=== PATIENT | female | born 1990 | race Caucasian/White ===

== ENCOUNTER 2020-05-14 21:56 | Emergency (ER) | payer OTHER, SELFPAY ==
[2020-05-14 21:58] VITALS: BP 133/81; PULSE 88; RESP 15; TEMP 35.7; O2SAT 99; BMI 30.7
--- NOTE | 2020-05-14 22:04 | PC.NURSE ---
PATIENT AMBULATING STEADILY NO DEFICITS NOTED. NO CHANGES TO SPEECH OR VISION. ALERT AND ORIENTED, IN TRIAGE. ABLE TO COMPLETE A NEURO ASSESSMENT WITH ISSUES.
--- NOTE | 2020-05-14 22:44 | ECG_ITS ---
Test Reason : BASELINE Blood Pressure : / mmHG Vent. Rate : 068 BPM Atrial Rate : 068 BPM P-R Int : 132 ms QRS Dur : 086 ms QT Int : 400 ms P-R-T Axes : 043 054 040 degrees QTc Int : 425 ms Normal sinus rhythm Normal ECG No previous ECGs available Referred By: Faith Enriquez Electronically Signed By:LINUS ANDRADE MD
[2020-05-14 23:01] LABS: Basophils Percent Auto 0.2 % (0-2); Eosinophils Percent Auto 0.2 % (0-4); Hematocrit 41.7 % (37-47); Imm Gran Abs Auto 0.05 X10*3/uL (0.00-0.03); Imm Gran Pct Auto 0.4 % (0.0-0.4); Lymphocytes Absolute Auto 2.6 X10*3/uL (1.2-4.9); MANUAL DIFF FLAG NO; Mean Corpuscular HGB Conc 33.6 g/dl (31.0-35.0); Mean Corpuscular Hemoglobin 30.6 pg (27.0-33.0); Mean Platelet Volume 9.3 fL (9.4-12.3); Monocytes Absolute Auto 0.7 X10*3/uL (0.1-1.2); Monocytes Percent Auto 6.1 % (2-11); Neutrophils Absolute Auto 8.8 X10*3/uL (2.0-8.3); Neutrophils Percent Auto 72.1 % (45-73); Platelet Count 317 X10*3/uL (160-400); Red Blood Count 4.58 X10*6/uL (4.20-5.50); Red Cell Distribution Width 12.1 % (11.0-16.0); White Blood Count 12.2 X10*3/uL (4.8-10.8)
[2020-05-14 23:13] LABS: Glucose Urine UA NEG (NEG); Leukocyte Esterase Urine TRACE (NEG); Nitrite Urine NEG (NEG); Specific Gravity - Urine 1.015 (1.005-1.025); Urine Blood TRACE (NEG); Urine Ketones NEG (NEG); Urine Protein NEG (NEG-TRACE)
[2020-05-14 23:15] LABS: Appearance Urine CLEAR; Color Urine YELLOW; UPreg QC Valid YES; Urine Pregnancy NEGATIVE (NEGATIVE)
[2020-05-14 23:22] LABS: Ethanol < 10 mg/dL
[2020-05-14 23:24] LABS: Bacteria Urine 1+ /LPF; Mucus Urine 1+ /LPF; RBC Urine 0-2 /HPF (0); Squamous Epithelial Cell Urine 2+ /LPF
[2020-05-14 23:25] LABS: Alanine Aminotransferase 13 U/L (0-31); Albumin Level 4.3 g/dL (3.5-5.0); Alkaline Phosphatase 59 U/L (39-117); Anion Gap 14 (12-20); Aspartate Amino Transferase 15 U/L (5-31); Bilirubin Total 0.3 mg/dL (0.0-1.0); Blood Urea Nitrogen 10 mg/dL (9-16); Carbon Dioxide 24 mmol/L (22-29); Chloride 104 mmol/L (96-108); Creatinine Clr Calc Pharmacy 120.8; Estimated Glomerular Filt Rate > 60; Glucose Random 92 mg/dL (60-115); Potassium 4.3 mmol/l (3.3-5.1); Sodium 138 mmol/L (135-145); Total Protein 7.2 g/dL (6.5-8.0)
[2020-05-14 23:27] LABS: Amphetamine Screen Urine Not Detected (Not Detect); Barbiturates, Urine Not Detected (Not Detect); Benzodiazepines Screen Urine Not Detected (Not Detect); Cannabinoid Screen Urine Not Detected (Not Detect); Cocaine Screen Urine Not Detected (Not Detect); Opiate Screen Urine Not Detected (Not Detect); Phencyclidine Screen Urine Not Detected (Not Detect)
[2020-05-14 23:46] LABS: TSH reflex Free T4 2.26 mIU/mL (0.32-4.0)
[2020-05-15] VITALS: BP 141/82; PULSE 83; RESP 15; TEMP 36.6; O2SAT 100
--- NOTE | 2020-05-15 00:08 | ED.GENADULT ---
HPI - General Adult General Chief complaint: General Medical Stated complaint: High Blood Pressure Time Seen by Provider: 05/14/20 22:43 Source: patient Mode of arrival: ambulatory Limitations: no limitations History of Present Illness HPI narrative: Is a 29-year-old female who presents for onset of bilateral peripheral vision decrease while at work on the computer and associated with some mild nausea but denies any associated dizziness, diaphoresis, shortness of breath, but states that this lasted approximately 45 minutes and did not affect her ability to perform her job and after resolution states that she began having a headache. She states that on the drive home she experienced some tingling and numbness in the tips of all 5 fingers that lasted approximately 10-15 minutes and that she felt shaky. She denies any recognizable stressor swallow work. When she got home due to the persistent headache she took her blood pressure and felt like it was elevated at 149/94. Her history is significant for having taken to control pills this morning because she had missed her dose yesterday. She does endorse that she is a smoker but does not have any personal or family history leg or lung clots, denies any recent travel, denies any recent calf swelling /pain unilaterally. In addition, she denies any associated shortness of breath. She states she has had some anxiety but that this is not something that she currently takes medication for. Related Data Home Medications Medication Instructions Recorded Confirmed L norgest/e.estradiol-e.estrad 1 tab PO DAILY 05/15/20 05/15/20 norgestimate-ethinyl estradiol 1 tab PO DAILY 05/15/20 05/15/20 [Tri-Previfem (28)] Previous Rx's Medication Instructions Recorded sulfamethoxazole-trimethoprim 1 tab PO Q12H 3 Days #6 tab 05/15/20 [Bactrim DS] Allergies Allergy/AdvReac Type Severity Reaction Status Date / Time No Known Allergies Allergy Verified 05/14/20 22:02 Review of Systems Review of Systems: Pertinent positives and negatives as stated in HPI 10 point review systems is otherwise negative. [facility] Past Medical History Source: nursing notes reviewed Medical History No active medical problems Social History Social History Smoking Status: Current every day smoker Use of substances other than those prescribed or required for medical reasons: No Advance Directives: No Advance Directives Information Provided: No Physical Exam Vital Signs: Vital Signs: Last Vital Signs Temp 97.8 F 05/15/20 00:00 Pulse 83 05/15/20 00:00 Resp 15 05/15/20 00:00 BP 141/82 H 05/15/20 00:00 Pulse Ox 100 05/15/20 00:00 Body Mass Index 30.7 VITAL SIGNS: Reviewed. GENERAL: Well developed, well nourished, in no acute distress. HEAD: Normocephalic/atraumatic, EYES: PERRLA, EOMI intact without pain, no nystagmus/pallor/icterus noted EARS: Ext canals without abnormality, TMs non-bulging and non-erythematous NOSE: Nares patent bilateral OROPHARYNX: no oral lesions noted, posterior pharynx clear and non-erythematous without noted tonsillar enlargement/erythema/exudates NECK: Supple, no adenopathy LUNGS: Normal breath sounds. No adventitious sounds or accessory muscle use. SpO2<100> CARDIOVASCULAR: Regular rate and rhythm without noted murmurs, no JVD or lower extremity edema. ABDOMEN: Soft, non-tender, non-distended with bowel sounds. No rigidity. No guarding. No palpable masses or hernias noted MUSCULOSKELETAL: No tenderness, deformities, or effusions noted on gross inspection. EXTREMITIES: No cyanosis, clubbing or edema. SKIN: Inspection of the skin reveals no rashes, ulcerations, jaundice, pallor, or petechiae. NEUROLOGIC: Alert and oriented x 4. Strength and sensation to light touch were grossly intact x 4 , cranial nerves 2-12 are grossly intact, cerebellar testing is without deficit. Course Course Course Narrative: This is a 29-year-old female with history and clinical presentation suggestive of possible anxiety reaction, doubt neurological etiology given the bilateral peripheral abnormality without evidence or history pituitary abnormalities and given the fact the patient has taken 2 of her control which could largely affect both headache as well as blood pressure. All symptoms have completely resolved at this time with the exception of the headache which will be treated with Tylenol as patient did not take anything for this. On review of all investigations there is a noted mild leukocytosis without left shift most consistent with likely stress response, there is no evidence of electrolyte or thyroid dysfunction, But there is trace leukocyte esterase as well as wbc's present in the urine which is suggestive of a UTI and patient will receive initial antibiotics here in the emergency department and be discharged with a prescription. All results and findings were discussed with her at bedside. Medical Decision Making Lab Data Result diagrams: 05/14/20 22:54 05/14/20 22:54 Labs: Lab Results 05/14/20 05/14/20 05/14/20 Range/Units 22:54 22:54 22:54 WBC 12.2 H (4.8-10.8) X10*3/uL RBC 4.58 (4.20-5.50) X10*6/uL Hgb 14.0 (12.0-16.0) g/dl Hct 41.7 (37-47) % MCV 91.0 (80-98) fL MCH 30.6 (27.0-33.0) pg MCHC 33.6 (31.0-35.0) g/dl RDW 12.1 (11.0-16.0) % Plt Count 317 (160-400) X10*3/uL MPV 9.3 L (9.4-12.3) fL Immature Gran % (Auto) 0.4 (0.0-0.4) % Neut % (Auto) 72.1 (45-73) % Lymph % (Auto) 21.0 (20-40) % [place] % (Auto) 6.1 (2-11) % Eos % (Auto) 0.2 (0-4) % Baso % (Auto) 0.2 (0-2) % Lymph # (Auto) 2.6 (1.2-4.9) X10*3/uL [place] # (Auto) 0.7 (0.1-1.2) X10*3/uL Eos # (Auto) 0.0 (0.0-0.4) X10*3/uL Baso # (Auto) 0.0 (0.0-0.2) X10*3/uL Abs Immat Gran (auto) 0.05 H (0.00-0.03) X10*3/uL Absolute Neuts (auto) 8.8 H (2.0-8.3) X10*3/uL Absolute Nucleated RBC 0.000 (0.0-0.012) X10*3/uL Nucleated RBC % (auto) 0.0 (0.0-0.2) /100WBC Sodium 138 (135-145) mmol/L Potassium 4.3 (3.3-5.1) mmol/l Chloride 104 (96-108) mmol/L Carbon Dioxide 24 (22-29) mmol/L Anion Gap 14 (12-20) BUN 10 (9-16) mg/dL Creatinine 0.76 (0.5-1.4) mg/dL Estim Creat Clear Calc 120.8 Estimated GFR > 60 Random Glucose 92 (60-115) mg/dL Calcium 9.0 (8.4-10.2) mg/dL Total Bilirubin 0.3 (0.0-1.0) mg/dL AST 15 (5-31) U/L ALT 13 (0-31) U/L Alkaline Phosphatase 59 (39-117) U/L Total Protein 7.2 (6.5-8.0) g/dL Albumin 4.3 (3.5-5.0) g/dL TSH (0.32-4.0) mIU/mL Urine Color Urine Appearance Urine pH (5.0-8.0) Ur Specific [place] (1.005-1.025) Urine Protein (NEG-TRACE) MG/DL Urine Glucose (UA) (NEG) MG/DL Urine Ketones (NEG) MG/DL Urine Blood (NEG) Urine Nitrite (NEG) Ur Leukocyte Esterase (NEG) Urine RBC (0) /HPF Urine WBC (0-4) /HPF Ur Squamous Epith Cells /LPF Urine Bacteria /LPF Urine Mucus /LPF Urine Test (NEGATIVE) Urine Opiates Screen (Not Detect) Ur Barbiturates Screen (Not Detect) Ur Phencyclidine Scrn (Not Detect) Ur Amphetamines Screen (Not Detect) U Benzodiazepines Scrn (Not Detect) Urine Cocaine Screen (Not Detect) U Marijuana (THC) Screen (Not Detect) Ethyl Alcohol < 10 mg/dL 05/14/20 05/14/20 05/14/20 Range/Units 22:54 23:06 23:06 WBC (4.8-10.8) X10*3/uL RBC (4.20-5.50) X10*6/uL Hgb (12.0-16.0) g/dl Hct (37-47) % MCV (80-98) fL MCH (27.0-33.0) pg MCHC (31.0-35.0) g/dl RDW (11.0-16.0) % Plt Count (160-400) X10*3/uL MPV (9.4-12.3) fL Immature Gran % (Auto) (0.0-0.4) % Neut % (Auto) (45-73) % Lymph % (Auto) (20-40) % [place] % (Auto) (2-11) % Eos % (Auto) (0-4) % Baso % (Auto) (0-2) % Lymph # (Auto) (1.2-4.9) X10*3/uL [place] # (Auto) (0.1-1.2) X10*3/uL Eos # (Auto) (0.0-0.4) X10*3/uL Baso # (Auto) (0.0-0.2) X10*3/uL Abs Immat Gran (auto) (0.00-0.03) X10*3/uL Absolute Neuts (auto) (2.0-8.3) X10*3/uL Absolute Nucleated RBC (0.0-0.012) X10*3/uL Nucleated RBC % (auto) (0.0-0.2) /100WBC Sodium (135-145) mmol/L Potassium (3.3-5.1) mmol/l Chloride (96-108) mmol/L Carbon Dioxide (22-29) mmol/L Anion Gap (12-20) BUN (9-16) mg/dL Creatinine (0.5-1.4) mg/dL Estim Creat Clear Calc Estimated GFR Random Glucose (60-115) mg/dL Calcium (8.4-10.2) mg/dL Total Bilirubin (0.0-1.0) mg/dL AST (5-31) U/L ALT (0-31) U/L Alkaline Phosphatase (39-117) U/L Total Protein (6.5-8.0) g/dL Albumin (3.5-5.0) g/dL TSH 2.26 (0.32-4.0) mIU/mL Urine Color YELLOW Urine Appearance CLEAR Urine pH 6.0 (5.0-8.0) Ur Specific [place] 1.015 (1.005-1.025) Urine Protein NEG (NEG-TRACE) MG/DL Urine Glucose (UA) NEG (NEG) MG/DL Urine Ketones NEG (NEG) MG/DL Urine Blood TRACE (NEG) Urine Nitrite NEG (NEG) Ur Leukocyte Esterase TRACE H (NEG) Urine RBC 0-2 (0) /HPF Urine WBC 5-9 H (0-4) /HPF Ur Squamous Epith Cells 2+ /LPF Urine Bacteria 1+ /LPF Urine Mucus 1+ /LPF Urine Test NEGATIVE (NEGATIVE) Urine Opiates Screen Not Detected (Not Detect) Ur Barbiturates Screen Not Detected (Not Detect) Ur Phencyclidine Scrn Not Detected (Not Detect) Ur Amphetamines Screen Not Detected (Not Detect) U Benzodiazepines Scrn Not Detected (Not Detect) Urine Cocaine Screen Not Detected (Not Detect) U Marijuana (THC) Screen Not Detected (Not Detect) Ethyl Alcohol mg/dL ECG Data Attestation: I personally reviewed and interpreted this ECG as follows: Interpretation: Normal sinus rhythm, HR - 68, no acute evidence of ischemia, MT/QRS/QTC are within normal limits. Discharge Plan Discharge Clinical Impression: UTI (urinary tract infection), Anxiety Patient Disposition: Home, Self-Care Instructions: Urinary Tract Infection in Women (ED) Additional Instructions: Resume all prescribed home medications. The patient and/or family acknowledge understanding of results (as applicable), diagnosis, treatment plan, need for follow up, and symptoms that should prompt a return to the emergency room. Prescriptions: New sulfamethoxazole-trimethoprim [Bactrim DS] 800-160 mg tablet 1 tab PO Q12H 3 Days Qty: 6 RF: 0 No Action norgestimate-ethinyl estradiol [Tri-Previfem (28)] 0.18/0.215/0.25 mg-35 mcg (28) tablet 1 tab PO DAILY RF: 0 L norgest/e.estradiol-e.estrad 0.15 mg-30 mcg (84)/10 mcg (7) tablets,dose pack,3 month 1 tab PO DAILY RF: 0 Referrals: Physician,Unknown [Primary Care Provider] - 2 days
[2020-05-15] MEDS: Acetaminophen 325 MG TABLET 975 MG PO (00:15)
--- NOTE | 2020-05-15 00:17 | PC.NURSE ---
PATIENT MEDICATED PER EMAR NOTED
== END 2020-05-15 01:50 | disposition home or self-care (01) ==
PROVIDERS: Emergency Provider Student in an Organized Health Care Education/Training Program
DX: N39.0 Urinary tract infection, site not specified (principal); F41.9 Anxiety disorder, unspecified; F17.200 Nicotine dependence, unspecified, uncomplicated; Z71.6 Tobacco abuse counseling; Z79.899 Other long term (current) drug therapy; Z91.14 Patient's other noncompliance with medication regimen
CPT/HCPCS: 36415; 80053; 80307; 80320; 81001; 81025; 84443; 85025; 87086; 93005; 99284

== ENCOUNTER 2024-09-22 15:27 | Outpatient (AMB) | payer OTHER, SELFPAY ==
--- NOTE | 2024-09-22 15:39 | A.OFFPC_ITS ---
Vital Signs 09/22/24 15:44 Height 5 ft 5.25 in Weight 242 lb BMI 40.0 BP 122/72 Blood Pressure Location Rt brachial Pulse 77 Pulse Source Pulse Oximeter Temp 97.2 F Pulse Oximetry (%) 99 Intake Visit Reasons: follow up Intake Note: no issues Allergies No Known Allergies Allergy (Verified 09/22/24 15:54) Medication List - Last Reconciled 09/22/24 by Kailey Palomo PA-C No Known Home Meds COUNTS INCLUDE 234 BEDS AT THE [facility] Medical History (Updated 09/22/24 @ 17:11 by Kailey Palomo PA-C) Fatty liver Varicose veins of both lower extremities Obesity, morbid, BMI 40.0-49.9 Establishing care with new doctor, encounter for Cervical cancer screening No active medical problems Surgical History H/O tubal ligation Questionnaire Thrive Questionnaire Date Thrive assessed: 02/18/24 Physical exam (Primary Care) Vital Signs: Last Vital Signs Temp 97.2 F 09/22/24 15:44 Pulse 77 09/22/24 15:44 BP 122/72 09/22/24 15:44 Pulse Ox 99 09/22/24 15:44 Care Plan Goal for BP management: <130/80 BMI result Body Mass Index 40.0 BMI Assessment/Plan discussion: High BMI High, discussed plan: lifestyle, weight reduction, dietary, physical activity and alcohol moderation Thrive Assessment: Date of Thrive Assessment Date Thrive assessed 02/18/24 09/22/24 15:46 Coding Level of Care Code New Pt Level 4 (12809) Complex EM visit Add On G2211 Diagnoses Establishing care with new doctor, encounter for Z76.89 Cervical cancer screening Z12.4 Obesity, morbid, BMI 40.0-49.9 E66.01 Varicose veins of both lower extremities I83.93 Fatty liver K76.0 Assessment & Plan Assessment & Plan (1) Establishing care with new doctor, encounter for: Code(s): Z76.89 - Persons encountering health services in other specified circumstances Category: Medical (2) Cervical cancer screening: Code(s): Z12.4 - Encounter for screening for malignant neoplasm of cervix Category: Medical Plan: will refer to [facility]. Last cervical cancer screening was in 2022. Will continue to monitor. (3) Obesity, morbid, BMI 40.0-49.9: Code(s): E66.01 - Morbid (severe) obesity due to excess calories Category: Medical Plan: Initiate semaglutide (Wegovy/Zepbound) trial pending insurance coverage for weight management. Evaluate weight plateau possibilities and consider a referral for bariatric evaluation if ineffectual. Require fasting lipid profile and associated bloodwork for comprehensive metabolic assessment. Condition is chronic and stable continue to monitor. (4) Varicose veins of both lower extremities: Code(s): I83.93 - Asymptomatic varicose veins of bilateral lower extremities Category: Medical Plan: Provide a referral for vascular assessment with options for cosmetic or symptomatic relief such as sclerotherapy for chronic venous insufficiency. Educate on familial risk awareness and symptom monitoring. Although patient wanted to hold off on this she would like to go in the future if it gets worse. Will continue to monitor. (5) Fatty liver: Code(s): K76.0 - Fatty (change of) liver, not elsewhere classified Category: Medical Plan: Monitor liver enzymes routinely, advise diet, and weight loss strategies to preclude hepatic steatohepatitis or worsen steatosis. Condition is chronic and stable continue to monitor. Plan Plan Patient was informed and verbally consented to the use of an ambient scribe for clinic note documentation during this visit. 1. Status Post Tubal Ligation Noted procedural history without required intervention at present. 2. Obesity Initiate semaglutide (Wegovy/Zepbound) trial pending insurance coverage for weight management. Evaluate weight plateau possibilities and consider a referral for bariatric evaluation if ineffectual. Require fasting lipid profile and associated bloodwork for comprehensive metabolic assessment. 3. Family history of ischemic heart disease and other diseases of the circulatory system Educate on preventive maneuvers acknowledging genetic predisposition and encourage routine cardiovascular screenings. 4. Venous Insufficiency With Varicose Veins Provide a referral for vascular assessment with options for cosmetic or symptomatic relief such as sclerotherapy for chronic venous insufficiency. Educate on familial risk awareness and symptom monitoring. 5. Possible Hepatic Steatosis Monitor liver enzymes routinely, advise diet, and weight loss strategies to preclude hepatic steatohepatitis or worsen steatosis. Discussion Notes I addressed the patient's obesity concerns by discussing pharmacologic interventions, namely Semaglutide (Wegovy/Zepbound), which might assist in achieving her weight management goals considering her metabolic profile. We reviewed the insurance processes and alternative routes like referral to a bariatric surgeon. I offered vascular specialist referral due to familial varicose vein history and her symptoms. Monitoring for hepatic steatosis was recommended due to previously noted enzyme elevation, coupled with a discussion of lifestyle ameliorations. Her family history of myocardial infarction flagged the importance of preventative cardiovascular assessments. We maintained an open dialogue concerning all possible options, including benefits and risks, ensuring informed shared decision-making. Orders: Orders Comprehensive [place]. Panel Fast Today Z00.00 - Encounter for general adult medical examination without abnormal findings C Reactive Protein Today Z00.00 - Encounter for general adult medical examination without abnormal findings Magnesium Today Z00.00 - Encounter for general adult medical examination without abnormal findings Liver Panel Today Z00.00 - Encounter for general adult medical examination without abnormal findings Lipid Panel Today Z00.00 - Encounter for general adult medical examination without abnormal findings Vitamin D 25-OH Total Today Z00.00 - Encounter for general adult medical examination without abnormal findings Complete Blood Count Auto Diff Today Z00.00 - Encounter for general adult medical examination without abnormal findings Erythrocyte Sedimentation Rate Today Z00.00 - Encounter for general adult medical examination without abnormal findings Hemoglobin A1c Today Z00.00 - Encounter for general adult medical examination without abnormal findings TSH reflex Free T4 Today Z00.00 - Encounter for general adult medical examination without abnormal findings Vitamin B12 and Folate Today Z00.00 - Encounter for general adult medical examination without abnormal findings Prolactin Today Z00.00 - Encounter for general adult medical examination without abnormal findings Testosterone, Total Today Z00.00 - Encounter for general adult medical examination without abnormal findings Estrogen Today Z00.00 - Encounter for general adult medical examination without abnormal findings Progesterone Today Z00.00 - Encounter for general adult medical examination without abnormal findings Referrals [facility] Referral Z12.4 - Encounter for screening for malignant neoplasm of cervix, Z76.89 - Persons encountering health services in other specified circumstances Medications: New tirzepatide (weight loss) (Zepbound) for 4 weeks 2.5 mg (0.5 mL) subcut QWEEK 2 mL 0RF E66.01 - Morbid (severe) obesity due to excess calories Discontinued sulfamethoxazole-trimethoprim 800-160 mg (Bactrim DS) Discontinued Reason: Patient Completed Course 1 tab PO Q12H 3 days 6 tabs 0RF Patient Instructions: Patient Instructions - Undergo fasting blood work as soon as possible. - Visit a referral vascular specialist who will contact you to arrange an appointment. - Monitor weight and adhere to a healthy diet to assist in achieving desired weight goals. - Await referral and potentially begin injectable semaglutide treatment as per prescription if approved by insurance. - Attend a follow-up in three months to review progress and revisit treatment outcomes. - Monitor for potential symptoms escalating or emerging requiring immediate attention, such as new leg pain, gastrointestinal symptoms, or changes in liver health. Scribe Plan - Not visible on output: History of Present Illness The patient is a 34-year-old female presenting for a wellness visit. She reports difficulty losing weight, especially after a tubal ligation in December 2022, and is seeking potential interventions for weight management. Despite efforts, her weight remains steadily above 240 pounds. Her family medical history is significant for a maternal history of mild myocardial infarction in the 50s and varicose veins, from which she might have inherited her venous insufficiency, m arked by a persistent bruise and discoloration on her leg. Additionally, she has previous hepatic enzyme elevations indicative of potential hepatic steatosis but denies abdominal pain or gastrointestinal symptoms. No other immediate medical concerns are reported, and the patient expresses interest in referrals for further evaluation of these conditions. Social History - Employment: Works at a [employer] in [place] for 15 years since high school - Housing: Lives in [facility] - Family status: Mother of two sons, aged 16 and 10 - Education: Attended elementary school with the clinician - Functional status: Active with work, requires moderate activity - Weight management: Attempted weight loss previously, plateauing after tubal ligation Review of Systems - Cardiovascular: Denies chest pain - Gastrointestinal: Denies abdominal pain, black or bloody stools - Musculoskeletal: Denies recent injuries; notes persistent bruise/discoloration on leg due to past injury - Endocrine: Denies thyroid dysfunction - General: Reports difficulty losing weight Physical Exam Appearance: Alert. Oriented X3. No acute distress. Head: Normal external exam. Normocephalic. Atraumatic. Eyes: Pupils are equal, round, and reactive to light. Extraocular movements intact. Conjunctiva and sclera normal. Eyelids normal. Ears: External auditory canal normal. Tympanic membranes normal. Throat: Pharynx normal. Uvula midline. Moist mucous membranes. Neck: Normal inspection. Neck supple. Full range of motion. No adenopathy. Thyroid Normal. No meningeal signs. No neck mass noted. Cardiovascular: Normal heart rate and rhythm. Heart sound normal. No murmurs noted. Pulses normal throughout. Respiratory: No respiratory distress. Painless inspiration. Breath sounds normal. No wheezes/rales/rhonchi noted. Chest nontender. No accessory muscle usage noted or decreased air movement noted. Abdomen: Soft and nontender. Bowel sounds normal in all 4 quadrants. No distention noted. No organomegaly noted. No visible injury noted. Back: No costovertebral angle tenderness. Full range of motion noted. Skin: Skin warm and dry. Normal skin color. Normal skin turgor. No rashes/lesions/lacerations noted. Bruise noted on the bottom of the leg, present for a long time, possibly related to varicose veins. Extremities: No lower extremity edema. Extremities exhibit normal range of motion. Extremities nontender. Occasional leg swelling noted after a long day. Neuro: Oriented X 3. No motor deficit. No sensory deficit. Reflexes normal.
[2024-09-22 15:44] VITALS: BP 122/72; PULSE 77; TEMP 36.2; O2SAT 99; BMI 40.0
--- OUTSIDE RECORDS SUMMARY | 2024-09-22 19:17 | XMS_ITS | Patient Health Record ---
Author Organization [facility] Address [address] [place] [address] [phone] Support Name Relationship Address Phone ELOY TANA Guarantor Unknown Unavailable REASON FOR REFERRAL No Information MEDICATIONS Medication SIG (Take, Route, Frequency, Duration) Notes Start Date End Date Status Cholestyramine 4 GM tAKE 1 PACKET MIX WITH WATER OR JUICE AND CONSUME ORALLY TWICE DAILY BEFORE MEALS Oral cholestyramine (with sugar) 4 gram powder for susp in a packet 03/23/2022 Active magnesium glycinate 100 mg tablet TAKE 4 TABS ORALLY ONCE DAILY BEFORE BED magnesium glycinate 100 mg tablet *Reorder from [email or web address] for eRx and Interaction Alerts* 03/23/2022 Active INCASSIA 0.35 MG TABLET INCASSIA 0.35 MG TABLET *Reorder from [email or web address] for eRx and Interaction Alerts* 02/25/2022 Active Niacin ER 500 MG tAKE 1 CAP ORALLY ONCE DAILY Oral niacin ER 500 mg capsule,extended release 03/23/2022 Active Omeprazole 40 MG Take 1 cap orally once daily at bedtime Oral omeprazole 40 mg capsule,delayed release 03/16/2022 Active PLAN OF TREATMENT No Information Insurance Providers Payer Name Payer Address Payer Phone Subscriber Number Group Number Insured Name Patient Relationship to Insured Coverage Start Date Coverage End Date [employer] [address] [place] [phone] [id number] TANA LYONS Self - patient is the insured
--- OUTSIDE RECORDS SUMMARY | 2024-09-22 19:17 | XMS_ITS | Clinical Summary ---
Author Organization [employer] Address [address] [facility] [address] [place] [address] Care Team Providers Care Regional Marketing Director Name Role Phone Unavailable Primary Care Provider Unavailabl e Social History Tobacco Use Types Packs/Day Years Used Date Smoking Tobacco: Never Assessed Comments Unknown Sex and Gender Information Value Date Recorded Sex Assigned at Female 02/18/2024 10:48 AM EDT Legal Sex Female 10:47 AM EDT Gender Identity Female 02/18/2024 10:48 AM EDT Sexual Orientation Don't know 02/18/2024 10 :48 AM EDT Plan of Treatment Health Maintenance Due Date Last Done Comments Depression Screening 1990 HIV Screening 1990 SDOH Screening 1990 Alcohol/Substance Use Screening 2002 Tobacco Screening 2002 Family Planning (PISQ) 2005 Hepatitis C Screening 2008 DTaP/Tdap/Td Vaccines (1 - Tdap) 2009 Hepatitis B Vaccines (1 of 3 - 19+ 3-dose series) 2009 Pap Smear 2011 Cervical Cancer Screening 2020 HPV/Cotest 2020 COVID-19 Vaccine ( - 2023-2 5 season) 2024 Influenza Vaccine (#1) 2024 Zoster Vaccines (1 of 2) 2040 RSV Patients and Pa tients Aged 60 years or older (1 - 1-dose 75+ series) 2065 HIB Vaccines Aged Out No longer eligi ble based on patient's age to complete this topic HPV Vaccines Aged Out No longer eligi ble based on patient's age to complete this topic Hepatitis A Vaccines Aged Out No long er eligible based on patient's age to complete this topic IPV Vaccines Aged Out No longer eligi ble based on patient's age to complete this topic Meningococcal Vaccine Aged Out No rosa maria izabel eligible based on patient's age to complete this topic Pneumococcal Vaccine: Pediat rics (0 to 5 Years) and At-Risk Patients (6 to 49) Years) Aged Out No longer eligible b ased on patient's age to complete this topic RSV under 20 months Aged Out No longe r eligible based on patient's age to complete this topic Rotavirus Vaccines Aged Out No longer eligible based on patient's age to complete this topic Insurance CIG
--- OUTSIDE RECORDS SUMMARY | 2024-09-22 19:17 | XMS_ITS | Data Portability ---
Author Organization [facility] Address [address] [place] [address] Care Team Providers Care Time Piece Repairer Name Role Phone STEFANI ARREAGA Primary Care Provider [phone] Assessment No assessment recorded. Plan of Treatment Reminders Order Date Submit Date Provider Last Modified By Organization Details Last Modified Time Details Appointments None recorded. Lab urinalysis, dipstick 2022 023 [facility], [address] [place] [address], [phone], 3 18:01:37 test, urine 2022 023 [facility] [address] [place] [address], [address] [place] [address], [phone], 3 18:01:37 culture, urine 2022 023 JENERA [facility], [address] [place] [address], [place], [address], 3 06:07:37 Referral None recorded. Procedures None recorded. Surgeries None recorded. Imaging XR, elbow, 3 or more view 2022 023 [facility], [address] [place] [address], [address], 18:55:51 Medication Orders cephalexin 500 mg capsule 2022 023 [id number], [address] [place], [address], 18:06:04 Patient TargetsNo targets recorded. Patient Instructions Encounter Date Encounter Id Patient Instructions Last Modified By Organization Details Last Modified Time 07/11/2022 [id number] elbow sprain: ca re instructions [email or web address] Not available 07/11/2022 18:04:01 08/13/2022 [id number] We recommend you get a repeat urinalysis in 2 weeks to ensure that any abnormalities have resolved. If urine abnormalities persist, you will likely need further testing or treatment. We will contact you within 3 to 5 days with the results of your lab test. If you have not heard back from us within that time frame, please feel free to contact our office regarding your results. Go to the Emergency Department immediately if your symptoms worsen or if you develop new symptoms that concern you. Drink plenty of fluids You should follow-up with your PCP in 4-5 days, or at any time if your condition does not improve or worsens. Any acute change should prompt a visit to the nearest Emergency Department. [email or web address] Not available 08/13/2022 18:01:36 Reason for Referral None Reported. Results Created Date Observation Date Name Description Value Unit Range Abnormal Flag Note LastModifiedBy Organization Detail LastModifiedTime 08/13/1908/15/2022 URINE CULTU REJUANITA NE urine culture, routine FINAL REPORT Not Available [facility] ([facility]) [address] [place], [address], 08/15/2022 06:07:37 08/13/19 23 08/15/2022 URINE CULTU REJUANITA NE result 1 COMMEN T Mixed uroge nital myron 10,00 0-25, 000 colon y formi ng units per mL Not Available [facility] ([facility]) [address] [place], [address], 08/15/2022 06:07:37 08/13/19 23 08/13/2022 urina lysis , dipst ick Unknown Analyte Normal = light yellow Not Available [address] [address] [facility], [address], 08/13/2022 17:33:10 08/13/19 23 08/13/2022 urina lysis , dipst ick Unknown Analyte Yellow Not Available se [address], [place], [address], 08/13/2022 17:33:10 08/13/19 23 08/13/2022 urina lysis , dipst ick Unknown Analyte Normal = clear Not Available [facility]en [facility], [place], [address], 08/13/2022 17:33:10 08/13/19 23 08/13/2022 urina lysis , dipst ick Unknown Analyte Slight ly Cloudy Not Available jen oneil [address], [place], [address], 08/13/2022 17:33:10 08/13/19 23 08/13/2022 urina lysis , dipst ick Unknown Analyte Normal = negati ve Not Available jen oneil [address], [place], [address], 08/13/2022 17:33:10 08/13/19 23 08/13/2022 urina lysis , dipst ick Unknown Analyte Negati ve Not Available jen oneil [address], [place], [address], 08/13/2022 17:33:10 08/13/19 23 08/13/2022 urina lysis , dipst ick Unknown Analyte Normal = Negati ve Not Available jen oneil [address], [place], [address], 08/13/2022 17:33:10 08/13/19 23 08/13/2022 urina lysis , dipst ick Unknown Analyte Negati ve Not Available jen oneil [address], [place], [address], 08/13/2022 17:33:10 08/13/1908/13/2022 urina lysis , dipst ick Unknown Analyte Normal = Negati ve Not Available jen oneil [address], [place], [address], 08/13/2022 17:33:10 08/13/19 23 08/13/2022 urina lysis , dipst ick Unknown Analyte 15 mg/dL Not Available jen oneil [address], [place], [address], 08/13/2022 17:33:10 08/13/19 23 08/13/2022 urina lysis , dipst ick Unknown Analyte Normal = 1.010, 1.015, 1.020 Not Available jen oneil [address], [place], [address], 08/13/2022 17:33:10 08/13/19 23 08/13/2022 urina lysis , dipst ick Unknown Analyte 1.020 Not Available se [address], [place], [address], 08/13/2022 17:33:10 08/13/19 23 08/13/2022 urina lysis , dipst ick Unknown Analyte Normal = Negati ve Not Available jen oneil [address], [place], [address], 08/13/2022 17:33:10 08/13/19 23 08/13/2022 urina lysis , dipst ick Unknown Analyte Trace- intact Not Available jen oneil [address], [place], [address], 08/13/2022 17:33:10 02/13/08/13/2022 urina lysis , dipst ick Unknown Analyte Normal = 6.5, 7.0, 7.5, 8.0 Not Available jen oneil [address], [place], [address], 08/13/2022 17:33:10 08/13/19 23 08/13/2022 urina lysis , dipst ick Unknown Analyte 6.5 Not Available [address], [place], [address], 08/13/2022 17:33:10 08/13/19 23 08/13/2022 urina lysis , dipst ick Unknown Analyte Normal = Negati ve Not Available [facility] [address], [place], [address], 08/13/2022 17:33:10 08/13/19 23 08/13/2022 urina lysis , dipst ick Unknown Analyte Negati ve Not Available jen [address], [place], [address], 08/13/2022 17:33:10 08/13/19 23 08/13/2022 urina lysis , dipst ick Unknown Analyte Normal = 0.2, 1.0 Not Available jen oneil [address], [place], [address], 08/13/2022 17:33:10 08/13/19 23 08/13/2022 urina lysis , dipst ick Unknown Analyte 0.2 E.U./d L Not Available [facility] [address], [place], [address], 08/13/2022 17:33:10 08/13/19 23 08/13/2022 urina lysis , dipst ick Unknown Analyte Normal = Negati ve Not Available jen [address], [place], [address], 08/13/2022 17:33:10 08/13/19 23 08/13/2022 urina lysis , dipst ick Unknown Analyte Negati ve Not Available [address]99jen oneil [address], [place], [address], 08/13/2022 17:33:10 08/13/19 23 08/13/2022 urina lysis , dipst ick Unknown Analyte Normal = Negati ve Not Available [facility] [address], [place], [address], 08/13/2022 17:33:10 08/13/19 23 08/13/2022 urina lysis , dipst ick Unknown Analyte Trace Not Available [address] [place] [address], [place], [address], 08/13/2022 17:33:10 08/13/19 23 08/13/2022 pregn danelle test, urine Unknown Analyte Normal = Negati ve Not Available [facility] [address], [place], [address], 08/13/2022 17:33:11 08/13/19 23 08/13/2022 pregn danelle test, urine Unknown Analyte negati ve Not Available [address] [place] [address], [place], [address], 08/13/2022 17:33:11 07/11/19 23 07/11/2022 XR, elbow , 3 or more view No observ ation record ed. [email or web address] 1 [facility] [address] [facility] [place], [address], 07/12/2022 08:12:42 Result Notes None recorded. Problems No Known Problems Procedures Surgical History None recorded. Imaging Results Imaging Date Name Status LastModified by Organiz ation Details LastModified Time 07/11/2022 XR, elbow, 3 or more view completed [email or web address] [facility] [address] [facility] [place], [address], 07/12/2022 08:12:42 Procedure Notes None recorded. Medical Equipment None Reported. Allergies No known drug allergies Medications Name Sig Start Date Stop Date Status Note LastModified by Organization Details LastModified Time cephalexin 500 mg capsule Take 1 capsule every 8 hours by oral route with meals for 7 days. 023 active Not Available Not Available Not Avai lable Zyrtec active Not Available Not Availa ble Not Available Incassia 0.35 mg tablet Take 1 tablet every day by oral route. active Not Available Not Available No t Available Vitals Date Recorded Body weight Body mass index (BMI) Body height Oxygen saturation Oxygen saturation in Arterial blood by Pulse oximetry Pain severity - 0-10 verbal numeric rating [Score] - Reported Heart rate Respiratory rate Body temperature Systolic blood pressure Diastolic blood pressure Provider Name and Address Organization Details Last Updated DateTime 3 554801. 25 g 37.1 kg/m2 167.64 cm 100 % 100 % 8 90 /min 20 /min 98.4 [degF] 144 mm[Hg] 92 mm[Hg] Nohemy Pina PA - [facility] 3 17:26:53 Date Recorded Body height Body mass index (BMI) Body weight Oxygen saturation Oxygen saturation in Arterial blood by Pulse oximetry Pain severity - 0-10 verbal numeric rating [Score] - Reported Heart rate Respiratory rate Body temperature Systolic blood pressure Diastolic blood pressure Provider Name and Address Organization Details Last Updated DateTime 3 167.64 cm 37.1 kg/m2 807102. 25 g 100 % 100 % 3 118 /min 20 /min 97.7 [degF] 137 mm[Hg] 85 mm[Hg] Nohemy Pina PA - [facility] 3 17:39:25 Social History Question Answer Notes LastModified by Organizat ion Details LastModified Time Tobacco Smoking Status Never Smoker Nohemy guajardo PA - [facility] 07/11/2022 17:25:24 What Is Your Level Of Alcohol Consumption? Occasional Information not available 07/11/2022 Do You Or Have You Ever Used E-cigarettes Or Vape? Current User Of Electronic Cigarettes Information not available 07/11/2022 Have You Had Direct Contact, Or Contact During Intimacy, With Monkeypox Rash, Scabs, Or Body Fluids From A Person With Monkeypox? No Information not available 07/11/2022 Do You Or Have You Ever Used Smokeless Tobacco? Never Used Smokeless Tobacco Information not available 07/11/2022 Do You Use Any Illicit Or Recreational Drugs? No Information not available 07/11/2022 Have You Recently Traveled Abroad? No Information not available 07/11/2022 Do You Or Have You Ever Used Any Other Forms Of Tobacco Or Nicotine? Yes Information not available 07/11/2022 Sex: Unknown Functional Status None recorded. Mental Status None recorded. Family History Relationship Description Onset Age of this Age Resolved Age Notes LastModified by Organization Details LastModified Time Father No current problems or disability Not available 07/11 17:25:15 Mother No current problems or disability Not available 07/11 17:25:15 Medical History No medical history recorded. Gynecological HistoryNo gynecological history recorded. Obstetrics History GPAL:G 0 P 0 0 0 0 Immunizations Vaccine Type Date Status Note Provider Nam e and Address Organization Details Recorded Time COVID-19, mRNA, LNP-S, PF, 100 mcg/0.5mL dose or 50 mcg/0.25mL dose 08/20/2020 completed Nohemy Silvana null, PA - [facility] 07/11/2022 17:24:45 COVID-19, mRNA, LNP-S, PF, 100 mcg/0.5mL dose or 50 mcg/0.25mL dose 07/22/2020 completed Nohemy Silvana null, PA - [facility] 07/11/2022 17:24:45 COVID-19, mRNA, LNP-S, bivalent, PF, 30 mcg/0.3 mL dose 05/06/2022 completed Nohemy Silvana null, PA - [facility] 07/11/2022 17:24:45 Influenza, MDCK, quadrivalent, PF 05/10/2022 completed Nohemy Holloway null, PA - [facility] 07/11/2022 17:24:45 COVID-19, mRNA, LNP-S, PF, 100 mcg/0.5mL dose or 50 mcg/0.25mL dose 06/07/2021 completed Nohemy Holloway null, PA - [facility] 07/11/2022 17:24:45 Influenza, split virus, quadrivalent, PF 02/03/2020 completed Nohemy Holloway null, PA - [facility] 08/13/2022 17:33:50 Influenza, split virus, quadrivalent, PF 02/12/2018 completed Nohemy Silvana null, PA - [facility] 08/13/2022 17:33:50 Influenza, split virus, quadrivalent, PF 02/13/2017 completed Nohemy Silvana null, PA - [facility] 08/13/2022 17:33:50 Influenza, split virus, quadrivalent, PF 02/17/2019 completed Nohemy Silvana null, PA - [facility] 08/13/2022 17:33:50 Influenza, split virus, quadrivalent, PF 02/21/2016 completed Nohemy Silvana null, PA - [facility] 08/13/2022 17:33:51 Influenza, split virus, quadrivalent, PF 03/04/2021 completed Noheym Silvana null, PA - [facility] 08/13/2022 17:33:51 Past Encounters Encounter ID Performer Location Encounter Start Date Encounter Closed Date Diagnosis/Indication Diagnosis SNOMED-CT Code Diagnosis ICD10 Code Diagnosis Note [id number] [facility] [address] [place] [address] 04/11/2019 15:46:00 04/11/2019 16:46:09 [id number] [facility] [address] [place] [address] 05/15/2020 10:24:10 05/15/2020 13:59:01 [id number] [facility] [address] [place] [address] 10/17/2015 18:11:44 10/17/2015 19:49:54 [id number] [facility] [address] [place] [address] 07/01/2020 09:58:06 07/01/2020 13:50:57 [id number] Fredy Pavon MD [facility] [address] [place] [address] 07/11/2022 17:04:35 07/11/2022 18:09:53 Pain in right arm 886411284 M79.601 Strain of muscle and/or tendon of elbow region 072210970 S56.911A May take ibuprofen as directed on the bottle for pain if you have no allergy to NSAIDs or contraindi cations to taking NSAIDs that your doctor has told you about. [id number] Carlton Adams [facility] [address] [place] [address] 08/13/2022 15:32:17 08/13/2022 18:11:39 Acute urinary tract infection 472989960 N39.0 Health Concerns Section Related Observation LastModified by Organization Detai ls LastModified Time None Recorded Concern Status LastModified by Organization Details LastModified Time None Recorded Advance Directives Directive None Recorded Payers Encounter Date Sequence Insurance Name Policy Number Policy Koch Covered Member ID Koch Member ID Guarantor Name 05/15/2020 1 [facility] [id number] Arnoldo Paulson [place] [id number] Crystal L Ricardo 07/01/2020 1 [facility] [id number] Arnoldo Paulson [place] [id number] Crystal L Ricardo 07/11/2022 [place] [id number] [facility] Crystal L [place] 08/13/2022 1 [facility] [id number] Crystal L [place] [id number] Crystal L Ricardo Notes Date Note Type Note Provider Name and Address Organization Details Recorded Time 3 text/html Upper Arm Elbow Injury UCReported bypatient.Hand Dominance:right Location:right Quality:dull Severity:mild Context:fall Associated Symptoms:no weakness; no numbness; no warmth; no catching/locking; no popping/clicking; no radiation down arm Previous InjuryNo prior injury to affected body part Fredy Pavon MD [address] [place], [address], [place] PA - [facility] 07/11/2022 18:20:03 3 text/html Urinary Complaint FemaleReported bypatient.source of patient informationInformation obtained from patient; Patient arrived at Urgent Care ambulatory UTI Symptoms:no blood in the urine; no pain during urination; no vaginal discharge; no urgency; no pain in the flank; no fever/chills; no incontinence; no recurrent UTI; no known exposure to STDNotes:frequency and urgency x 1 day. denies any fever or fever with chills, denies any History of renal stone or bladder issues. frequency and urgency x 1 day. denies any fever or fever with chills, denies any History of renal stone or bladder issues. Carlton Adams NP [address] [facility], [address], [place] PA - [facility] 08/13/2022 18:06:43 OBGyn Episode No OBEpisode recorded.
== END 2024-09-22 16:10 | disposition home or self-care (01) ==
LOC: HO.HMCSH 15:27
PROVIDERS: PCP Internal Medicine; Visit Provider Physician Assistant Medical
DX: Z76.89 Persons encountering health services in other specified circumstances (principal); Z12.4 Encounter for screening for malignant neoplasm of cervix; E66.01 Morbid (severe) obesity due to excess calories; I83.93 Asymptomatic varicose veins of bilateral lower extremities; K76.0 Fatty (change of) liver, not elsewhere classified

== ENCOUNTER 2024-09-25 10:59 | Outpatient (REF) | payer OTHER, SELFPAY ==
[2024-09-25 13:23] LABS: MANUAL DIFF FLAG NO
[2024-09-25 13:41] LABS: Basophils Percent Auto 0.2 % (0-2); Eosinophils Percent Auto 0.6 % (0-4); Hematocrit 42.4 % (37.0-47.0); Hemoglobin 14.1 g/dl (12.0-16.0); Imm Gran Abs Auto 0.02 X10*3/uL (0.00-0.03); Imm Gran Pct Auto 0.3 % (0.0-0.4); Lymphocytes Absolute Auto 1.9 X10*3/uL (1.2-4.9); Lymphocytes Percent Auto 28.1 % (20-40); Mean Corpuscular HGB Conc 33.3 g/dl (31.0-35.0); Mean Corpuscular Volume 90.2 fL (80.0-98.0); Monocytes Absolute Auto 0.4 X10*3/uL (0.1-1.2); Neutrophils Absolute Auto 4.3 x10*3/uL (2.0-8.3); Neutrophils Percent Auto 64.8 % (45-73); Platelet Count 338 X10*3/uL (160-400); Red Cell Distribution Width 12.4 % (11.0-16.0); White Blood Count 6.7 X10*3/uL (4.8-10.8)
[2024-09-25 13:50] LABS: Estimated Average Glucose 97 mg/dL; Total Hemoglobin (HGBA1C) 3734.9538 umol/L
[2024-09-25 14:08] LABS: Alanine Aminotransferase 29 U/L (0-31); Albumin Level 4.2 g/dL (3.5-5.0); Alkaline Phosphatase 88 U/L (39-117); Anion Gap 8 (12-20); Aspartate Amino Transferase 23 U/L (5-31); Bilirubin Direct 0.2 mg/dL (0.0-0.5); Bilirubin Total 0.4 mg/dL (0.0-1.0); Blood Urea Nitrogen 9 mg/dL (9-16); C Reactive Protein 0.58 mg/dL (< or = 0.50); Calcium 9.3 mg/dL (8.4-10.2); Carbon Dioxide 28 mmol/L (22-29); Chloride 106 mmol/L (96-108); Cholesterol 198 mg/dL (<200); Estimated Glomerular Filt Rate > 60; Glucose Fasting 88 mg/dL (60-99); HDL Cholesterol 64 mg/dL (>40); LDL Cholesterol Calculated 124 mg/dL (<100); Sodium 138 mmol/L (135-145); TSH reflex Free T4 0.76 uIU/mL (0.32-4.0); Total Protein 7.5 g/dL (6.5-8.0); Triglycerides 51 mg/dL (<150); Vitamin D 25-OH Total 24.2 ng/mL (>30)
[2024-09-25 14:20] LABS: Folate 5.5 ng/mL (> or = 4.0); Vitamin B12 396 pg/mL (200-900)
[2024-09-25 14:38] LABS: Erythrocyte Sedimentation Rate 22 MM/HR (0-20)
[2024-09-26 08:23] LABS: Prolactin 5.4 ng/mL
[2024-10-01 01:03] LABS: Testosterone, Total 67 ng/dL (2-45)
[2024-10-02 02:13] LABS: Estrogen 286 pg/mL
[2024-10-06 21:32] LABS: Progesterone 0.7 ng/mL
== END 2024-09-25 11:00 | disposition home or self-care (01) ==
LOC: HO.HMGCLDS 10:59
PROVIDERS: Visit Provider Physician Assistant Medical
DX: Z00.00 Encounter for general adult medical examination without abnormal findings (principal); Z13.1 Encounter for screening for diabetes mellitus; Z13.6 Encounter for screening for cardiovascular disorders
CPT/HCPCS: 36415; 80053; 80061; 80076; 82248; 82306; 82607; 82672; 82746; 83036; 83735; 84144; 84146; 84403; 84443; 85025; 85652; 86140

== ENCOUNTER 2024-11-10 13:46 | Outpatient (AMB) | payer OTHER, SELFPAY ==
[2024-11-10 13:51] VITALS: BP 130/82; PULSE 74; O2SAT 96; BMI 40.3
--- NOTE | 2024-11-10 13:51 | MHC.OFFVIS ---
Vital Signs 11/10/24 13:51 Height 5 ft 5.25 in Weight 244 lb 0.827 oz BMI 40.3 BP 130/82 Blood Pressure Location Lt brachial Position Sitting Pulse 74 Pulse Source Pulse Oximeter Pulse Oximetry (%) 96 Oxygen Delivery Method Room Air Intake Visit Reasons: Obesity Intake Note: New patient internally referred by PCP for Obesity. Machine Stitcher Required: No Accompanied by: Self / Same As Patient Allergies No Known Allergies Allergy (Verified 11/10/24 13:56) HPI Comments Details: The patient is a 34-year-old female presenting with concerns about significant weight gain and elevated testosterone levels. Approximately three to four years ago, she noted a substantial weight increase of about 40 pounds over a 6-month period while using control, which she has since stopped, with an inability to lose the weight gained. Currently weighing 244 pounds, she has not engaged in specific diets but aims to consume a balanced diet with lower carbohydrate intake. The patient previously received information about high testosterone levels, prompting concerns about possible Polycystic Ovarian Syndrome (PCOS). Despite elevated testosterone levels, she reports typical menstrual cycles without significant issues of hirsutism. Her medical history includes a miscarriage before her child, with no plans for further pregnancies due to tubal sterilization. Insurance has denied semaglutide coverage for her obesity management; however, she shows hesitancy to use these medications. The patient reports no adherence to specific dietary regimens but attempts to maintain a balanced diet with reduced carbohydrate intake. She avoids excessive snacking and does not engage in structured nutritional planning. The patient has had no consultations with a senior maintenance machinist but expresses willingness to explore this. No significant hirsuitism. Menses are nl. Has 1 child. No problems with fertility. Not looking to become . - Previously attempted semaglutide for obesity management; insurance coverage was denied. - control (specifics unknown) previously used, associated with weight gain. [facility] Medical History (Updated 10/01/24 @ 09:23 by Kailey Palomo PA-C) Elevated testosterone level Hyperlipidemia Fatty liver Varicose veins of both lower extremities Obesity, morbid, BMI 40.0-49.9 Establishing care with new doctor, encounter for Cervical cancer screening No active medical problems Surgical History H/O tubal ligation Physical Exam Vital Signs: Last Vital Signs Pulse 74 11/10/24 13:51 BP 130/82 11/10/24 13:51 Pulse Ox 96 11/10/24 13:51 Oxygen Delivery Method Room Air 11/10/24 13:51 BMI result Body Mass Index 40.3 Const Other: Absence of cushingoid features. Thyroid gland is normal size weighs about 15 g. There are no thyroid nodules palpated Assessment & Plan Assessment & Plan (1) Obesity, morbid, BMI 40.0-49.9: Code(s): E66.01 - Morbid (severe) obesity due to excess calories Category: Medical Plan: This is a 34-year-old white female with a history of morbid obesity. No clear underlying endocrine etiology. Patient appears clinically biochemically euthyroid 1. Obesity Weight management challenges associated with potential insulin resistance were addressed, and semaglutide as a GLP-1 receptor agonist was discussed despite insurance challenges. Discussion on exploring nutritional intervention was offered with a referral to a senior maintenance machinist suggested. 2. Elevated Testosterone Levels and PCOS The role of insulin resistance and suspected PCOS was delineated. The patient was informed about management options focusing on weight loss to potentially mitigate PCOS effects. I discussed with the patient the association between her weight issues, potential insulin resistance, and the possibility of PCOS related to her elevated testosterone levels. The implications of GLP-1 receptor agonists, like semaglutide, were explored, although insurance barriers were noted. I offered a referral to a senior maintenance machinist to aid in dietary management. The patient was also informed about the advantages of weight management in addressing PCOS. Lastly, potential future medications, such as tirzepatide and emerging agents, were highlighted with a review of potential costs outside of insurance coverage. - Follow the referral to see a senior maintenance machinist for dietary guidance. - Discuss weight management and explore potential options outside of insurance for medications with significant weight loss benefits. - Attend a follow-up appointment in three months for re-evaluation of weight management strategies and potential endocrine-related concerns. - Maintain the current diet with a focus on balanced nutritional intake and reduced carbohydrates. - Monitor any new or unusual symptoms and report them during follow-up. - Acknowledge that insurance may have limitations on obesity medications, consider available alternatives. - The patient had an opportunity to ask questions regarding treatment plan. The patient expressed understanding and agreement with the above treatment plan. Patient was informed and verbally consented to the use of an ambient scribe for clinic note documentation during this visit. Orders: Referrals Nutrition/Dietitian Referral E66.01 - Morbid (severe) obesity due to excess calories Medications: New tirzepatide (weight loss) (Zepbound) for 4 weeks 2.5 mg (0.5 mL) subcut QWEEK 2 mL 5RF Discontinued semaglutide (weight loss) (Wegovy) administer weeks 1 through 4 of therapy Discontinued Reason: Doctor's Order 0.25 mg (0.5 mL) subcut QWEEK 2 mL 0RF E66.01 - Morbid (severe) obesity due to excess calories, E78.5 - Hyperlipidemia, unspecified, K76.0 - Fatty (change of) liver, not elsewhere classified Coding Level of Care Code New Pt Level 4 (97153) Diagnoses Obesity, morbid, BMI 40.0-49.9 E66.01
--- OUTSIDE RECORDS SUMMARY | 2024-11-10 14:56 | XMS_ITS | Data Portability ---
Author Organization [facility] Address [address] [place] [address] Care Team Providers Care Welt Sole Layer Name Role Phone STEFANI ARREAGA Primary Care Provider Assessment No assessment recorded. Plan of Treatment Reminders Order Date Submit Date Provider Last Modified By Organization Details Last Modified Time Details Appointments None recorded. Lab urinalysis, dipstick 2022 023 [facility], [address] [place] [address], [phone], 3 18:01:37 test, urine 2022 023 [facility] [address] [place] [address], [address] [place] [address], [phone], 3 18:01:37 culture, urine 2022 023 [place], [address] [place] [address], [place], [address], 3 06:07:37 Referral None recorded. Procedures None recorded. Surgeries None recorded. Imaging XR, elbow, 3 or more view 2022 023 [facility], [address] [place] [address], [address], 18:55:51 Medication Orders cephalexin 500 mg capsule 2022 023 [id number], [address] [place], [address], 18:06:04 Patient TargetsNo targets recorded. Patient Instructions Encounter Date Encounter Id Patient Instructions Last Modified By Organization Details Last Modified Time 07/11/2022 [id number] elbow sprain: ca re instructions [email or web address] Not available 07/11/2022 18:04:01 08/13/2022 [id number] We recommend you get a repeat urinalysis [...] culture, routine FINAL REPORT Not Available [facility] ([facility]) [address] [place], [address], 08/15/2022 06:07:37 08/13/19 23 08/15/2022 URINE CULTU REJUANITA NE result 1 COMMEN T Mixed uroge nital myron 10,00 0-25, 000 colon y formi ng units per mL Not Available [facility] ([facility]) [address] [place], [address], 08/15/2022 06:07:37 08/13/19 23 08/13/2022 urina lysis , dipst ick Unknown Analyte Normal = light yellow Not Available [address] [facility], [address], 08/13/2022 17:33:10 08/13/19 23 08/13/2022 urina lysis , dipst ick Unknown Analyte Yellow Not Available se [address], [place], [address], 08/13/2022 17:33:10 08/13/19 23 08/13/2022 urina lysis , dipst ick Unknown Analyte Normal = clear Not Available [facility], [place], [address], 08/13/2022 17:33:10 08/13/19 23 08/13/2022 urina lysis , dipst ick Unknown Analyte Slight ly Cloudy Not Available jen one[facility] [address], [place], [address], 08/13/2022 17:33:10 08/13/19 23 08/13/2022 urina lysis , dipst ick Unknown Analyte Normal = negati ve Not Available jen oneil [address], [place], [address], 08/13/2022 17:33:10 08/13/19 23 08/13/2022 urina lysis , dipst ick Unknown Analyte Negati ve Not Available jen one[facility] [address], [place], [address], 08/13/2022 17:33:10 08/13/19 23 08/13/2022 urina lysis , dipst ick Unknown Analyte Normal = Negati ve Not Available jen one[facility] [address], [place], [address], 08/13/2022 17:33:10 08/13/19 23 08/13/2022 urina lysis , dipst ick Unknown Analyte Negati ve Not Available jen oneil [address], [place], [address], 08/13/2022 17:33:10 08/13/1908/13/2022 urina lysis , dipst ick Unknown Analyte Normal = Negati ve Not Available jen oneil [address], [place], [address], 08/13/2022 17:33:10 08/13/19 23 08/13/2022 urina lysis , dipst ick Unknown Analyte 15 mg/dL Not Available jen oneil [address], [place], [address], 08/13/2022 17:33:10 08/13/19 23 08/13/2022 urina lysis , dipst ick Unknown Analyte Normal = 1.010, 1.015, 1.020 Not Available jen oneil [address], [place], [address], 08/13/2022 17:33:10 08/13/19 23 08/13/2022 urina lysis , dipst ick Unknown Analyte 1.020 Not Available se [address], [place], [address], 08/13/2022 17:33:10 08/13/19 23 08/13/2022 urina lysis , dipst ick Unknown Analyte Normal = Negati ve Not Available jen oneil [address], [place], [address], 08/13/2022 17:33:10 08/13/19 23 08/13/2022 urina lysis , dipst ick Unknown Analyte Trace- intact Not Available jen oneil [address], [place], [address], 08/13/2022 17:33:10 02/13/08/13/2022 urina lysis , dipst ick Unknown Analyte Normal = 6.5, 7.0, 7.5, 8.0 Not Available jen oneil [address], [place], [address], 08/13/2022 17:33:10 08/13/19 23 08/13/2022 urina lysis , dipst ick Unknown Analyte 6.5 Not Available [address], [place], [address], 08/13/2022 17:33:10 08/13/19 23 08/13/2022 urina lysis , dipst ick Unknown Analyte Normal = Negati ve Not Available [facility] [address], [place], [address], 08/13/2022 17:33:10 08/13/19 23 08/13/2022 urina lysis , dipst ick Unknown Analyte Negati ve Not Available jen [address], [place], [address], 08/13/2022 17:33:10 08/13/19 23 08/13/2022 urina lysis , dipst ick Unknown Analyte Normal = 0.2, 1.0 Not Available jen oneil [address], [place], [address], 08/13/2022 17:33:10 08/13/19 23 08/13/2022 urina lysis , dipst ick Unknown Analyte 0.2 E.U./d L Not Available [facility] [address], [place], [address], 08/13/2022 17:33:10 08/13/19 23 08/13/2022 urina lysis , dipst ick Unknown Analyte Normal = Negati ve Not Available jen [address], [place], [address], 08/13/2022 17:33:10 08/13/19 23 08/13/2022 urina lysis , dipst ick Unknown Analyte Negati ve Not Available 2099jen oneil [address], [place], [address], 08/13/2022 17:33:10 08/13/19 23 08/13/2022 urina lysis , dipst ick Unknown Analyte Normal = Negati ve Not Available [facility] [address], [place], [address], 08/13/2022 17:33:10 08/13/19 23 08/13/2022 urina lysis , dipst ick Unknown Analyte Trace Not Available [address] [place] [address], [place], [address], 08/13/2022 17:33:10 08/13/19 23 08/13/2022 pregn danelle test, urine Unknown Analyte Normal = Negati ve Not Available [facility] [address], [place], [address], 08/13/2022 17:33:11 08/13/19 23 08/13/2022 pregn danelle test, urine Unknown Analyte negati ve Not Available [address] [place] [address], [place], [address], 08/13/2022 17:33:11 07/11/19 23 07/11/2022 XR, elbow , 3 or more view No observ ation record ed. [email or web address] 1 [facility] [address] [place], [address], 07/12/2022 08:12:42 Result Notes None recorded. Problems No Known Problems Procedures Surgical History None recorded. Imaging Results Imaging Date Name Status LastModified by Organiz ation Details LastModified Time 07/11/2022 XR, elbow, 3 or more view completed [email or web address] [facility] [address] [place], [address], 07/12/2022 08:12:42 Procedure Notes None recorded. Medical [...] Address Organization Details Last Updated DateTime 3 860148. 25 g 37.1 kg/m2 167.64 cm 100 [...] Updated DateTime 3 167.64 cm 37.1 kg/m2 098652. 25 g 100 % 100 % 3 118 /min 20 /min 97.7 [degF] 137 mm[Hg] 85 mm[Hg] Nohemy Pina PA - [facility] 3 17:39:25 Social History Question Answer Notes LastModified by Organizat ion Details LastModified Time Tobacco Smoking Status Never Smoker Nohemy guajardo PA - [facility] 07/11/2022 17:25:24 Have You Had Direct Contact, Or Contact During Intimacy, With Monkeypox Rash, Scabs, Or Body Fluids From A Person With Monkeypox? No Information not available 07/11/2022 Have You Recently Traveled Abroad? No Information not available 07/11/2022 Sex: Unknown Functional Status Question Answer Note LastModified by Organizat ion Details LastModified Time Do you use any illicit or recreational drugs? No Information not available 07/11/2022 Do you or have you ever used any other forms of tobacco or nicotine? Yes Information not available 07/11/2022 What is your level of alcohol consumption? Occasional Information not available 07/11/2022 Do you or have you ever used smokeless tobacco? Never used smokeless tobacco Information not available 07/11/2022 Do you or have you ever used e-cigarettes or vape? Current user of electronic cigarettes Information not available 07/11/2022 Mental Status None recorded. Family History Relationship [...] or 50 mcg/0.25mL dose 08/20/2020 completed Nohemy Cardington null, PA - [facility] 07/11/2022 17:24:45 COVID-19, mRNA, LNP-S, PF, 100 mcg/0.5mL dose or 50 mcg/0.25mL dose 07/22/2020 completed Nohemy Silvana null, PA - [facility] 07/11/2022 17:24:45 COVID-19, mRNA, LNP-S, bivalent, PF, 30 mcg/0.3 mL dose 05/06/2022 completed Nohemy Silvana null, PA - [facility] 07/11/2022 17:24:45 Influenza, MDCK, quadrivalent, PF 05/10/2022 completed Nohemy Cardington null, PA - [facility] 07/11/2022 17:24:45 COVID-19, mRNA, LNP-S, PF, 100 mcg/0.5mL dose or 50 mcg/0.25mL dose 06/07/2021 completed Nohemy Cardington null, PA - [facility] 07/11/2022 17:24:45 Influenza, split virus, quadrivalent, PF 02/03/2020 completed Nohemy Silvana null, PA - [facility] 08/13/2022 17:33:50 Influenza, split virus, quadrivalent, PF 02/12/2018 completed Nohemy Cardington null, PA - [facility] 08/13/2022 17:33:50 Influenza, split virus, quadrivalent, PF 02/13/2017 completed Nohemy Cardington null, PA - [facility] 08/13/2022 17:33:50 Influenza, split virus, quadrivalent, PF 02/17/2019 completed Nohemy Cardington null, PA - [facility] 08/13/2022 17:33:50 Influenza, split virus, quadrivalent, PF 02/21/2016 completed Nohemy Cardington null, PA - [facility] 08/13/2022 17:33:51 Influenza, split virus, quadrivalent, PF 03/04/2021 completed Nohemy Silvana null, PA - [facility] 08/13/2022 17:33:51 Past Encounters Encounter ID Performer Location Encounter Start Date Encounter Closed Date Diagnosis/Indication Diagnosis SNOMED-CT Code Diagnosis ICD10 Code Diagnosis Note [id number] [facility] [address] [place] [address] 04/11/2019 15:46:00 04/11/2019 16:46:09 [id number] [facility] [address] [place] [address] 05/15/2020 10:24:10 05/15/2020 13:59:01 [id number] [facility] [address] [place] [address] 10/17/2015 18:11:44 10/17/2015 19:49:54 [id number] [facility] [address] [facility] [place] [address] 07/01/2020 09:58:06 07/01/2020 13:50:57 [id number] Fredy Pavon MD [address] [address] [place] [address] 07/11/2022 17:04:35 07/11/2022 18:09:53 Pain in right arm 222921125 M79.601 Strain of muscle and/or tendon of elbow region 167091107 S56.911A May take ibuprofen as directed on the bottle for pain if you have no allergy to NSAIDs or contraindi cations to taking NSAIDs that your doctor has told you about. [id number] Carlton Adams NP [address] [facility] [place] [address] 08/13/2022 15:32:17 08/13/2022 18:11:39 Acute urinary tract infection 433931522 N39.0 Health Concerns Section Related Observation LastModified by Organization Detai ls LastModified Time None Recorded Concern Status LastModified by Organization Details LastModified Time None Recorded Advance Directives Directive None Recorded Payers Insurance Date Sequence Insurance Name Policy Number Policy Koch Covered Member ID Koch Member ID Guarantor Name 07/11/2022 1 [facility] [id number] Arnoldo Paulson Ricardo [id number] Crystal L Ricardo 09/24/2022 [employer] [id number] [facility] Crystal L [place] 08/13/2022 1 [facility] [id number] Crystal L [place] [id number] Crystal L [place] 09/24/[address] [facility] Generic Employer Crystal L Ricardo Notes Date Note Type Note Provider Name and Address Organization Details Recorded Time 3 text/html Upper Arm Elbow Injury UCReported bypatient.Hand Dominance:right Location:right Quality:dull Severity:mild Context:fall Associated Symptoms:no weakness; no numbness; no warmth; no catching/locking; no popping/clicking; no radiation down arm Previous InjuryNo prior injury to affected body part Fredy Pavon MD [address] [place], [address], [place] - [facility] 07/11/2022 18:20:03 3 [...] or bladder issues. Carlton Adams NP [address] [facility] [place], [address], [place] - [facility] 08/13/2022 18:06:43 OBGyn Episode No OBEpisode recorded.
--- OUTSIDE RECORDS SUMMARY | 2024-11-10 14:57 | XMS_ITS | Clinical Summary ---
Author Organization [employer] Address [address] [facility] [address] [place] [address] Care Team Providers Care Finisher Map And Chart Name Role Phone Unavailable Primary Care Provider [...]
== END 2024-11-10 14:29 | disposition home or self-care (01) ==
LOC: HO.ENCR 13:47
PROVIDERS: PCP Internal Medicine; Visit Provider Internal Medicine Endocrinology, Diabetes & Metabolism
DX: E66.01 Morbid (severe) obesity due to excess calories (principal)
CPT/HCPCS: 99204

== ENCOUNTER 2024-12-21 15:35 | Outpatient (AMB) | payer OTHER, SELFPAY ==
--- NOTE | 2024-12-21 15:38 | A.OFFPC_ITS ---
Vital Signs 12/21/24 15:40 Height 5 ft 5.25 in Weight 247 lb BMI 40.8 BP 133/65 Respiration 16 Pulse 78 Pulse Source Pulse Oximeter Temp 98.1 F Temp Source Temporal Artery Scan Pulse Oximetry (%) 99 Oxygen Delivery Method Room Air Intake Visit Reasons: 3 month f/u Size Changer Required: No Accompanied by: Self / Same As Patient Allergies No Known Allergies Allergy (Verified 12/21/24 16:11) Medication List - Last Reconciled 12/21/24 by Kailey Palomo PA-C cholecalciferol (vitamin D3) 25 mcg PO DAILY Tobacco use date assessed: 12/21/24 Dental Screening Dental Screen Date: 12/21/24 Did you have a dental visit in the last 12 months?: Yes Did you have a dental problem in the last 6 months where you did not have access to dental care?: No Was dental information given to patient?: Patient has dentist HPI 3 month f/u HPI Details The patient is a 34-year-old female presenting with left knee pain. The knee pain has been intermittent for a couple of years but has recently become a daily occurrence, particularly when bending the knee. The pain is localized to the back of the knee with no palpable cysts, and there is no history of recent trauma or injury. The patient also reports chronic neck pain that has been worsening over the past few days. Additionally, she experiences sciatica, which has been persistent since childbirth. The patient has a history of low testosterone and was referred to endocrinology, where no significant interventions were made. She is scheduled to see an [employer]CRAFT ENGINE [employer]BLER for further evaluation, as there is a suspicion of Polycystic Ovarian Syndrome (PCOS). Previous blood work showed an elevated ESR at 22, indicating inflammation, and low vitamin D levels. Her LDL cholesterol was slightly elevated at 124 mg/dL. Social History - Employment: Works in [employer] discussed for convenience of medical appointments. [facility] Medical History (Updated 12/21/24 @ 16:32 by Kailey Palomo PA-C) Elevated erythrocyte sedimentation rate Vitamin D deficiency Posterior knee pain Left knee pain Elevated testosterone level Hyperlipidemia Fatty liver Varicose veins of both lower extremities Obesity, morbid, BMI 40.0-49.9 Establishing care with new doctor, encounter for Cervical cancer screening No active medical problems Surgical History H/O tubal ligation Family History Father No problems noted. Mother No problems noted. Social History Housing: House Alcohol intake: current Alcohol intake frequency: a few times a week Alcohol type: beer Patient Tobacco Use Status: Former Tobacco user e-Cigarette/Vaping Use: Currently Using service: No Current occupational status: employed Cognitive needs: No Hearing needs: No Vision needs: No Questionnaire PHQ-9 Over the last 2 weeks, how often have you been bothered by any of the following problems? 1. Little interest or pleasure in doing things: not at all 2. Feeling down, depressed, or hopeless: not at all 3. Trouble falling or staying asleep, or sleeping too much: not at all 4. Feeling tired or having little energy: not at all 5. Poor appetite or overeating: not at all 6. Feeling bad about yourself - or that you are a failure or have let yourself or your family down: not at all 7. Trouble concentrating on things, such as reading the newspaper or watching television: not at all 8. Moving or speaking so slowly that other people could have noticed. Or the opposite - being so fidgety or restless that you have been moving around a lot more than usual: not at all 9. Thoughts that you would be better off or of hurting yourself in some way: not at all Total score: 0 Depression Screening Interpretation: Negative Depression Screening Done: Yes 84941 - PHQ-9 Billing: Yes Source: Developed by Drs. Seamus Del Rio, Mariann Penny, Dante Turcios and colleagues, with an educational nabila from [employer]. Thrive Questionnaire Date Thrive assessed: 12/21/24 I am a: Patient What is your living situation today?: I have a steady place to live Within the past 12 months, did the food you bought not last and you didn't have the money to get more?: Never true Within the past 12 months, did you worry whether your food would run out before you got money to buy more?: Never true Do you have trouble paying for medicines?: No Do you have trouble getting transportation to medical appointments?: No Do you have trouble paying your heating and electricity bill?: No Do you have trouble taking care of your child, family member or friend?: No Do you have trouble with day-to-day activities such as bathing, preparing meals, shopping, managing finances, etc.?: No Are you currently unemployed and looking for a job?: No Are you interested in more education?: No Please select the resources that you would like help with: None THRIVE Score: 0 AUDIT C Alcohol Use Questionnaire (AUDIT-C) 1. How often do you have a drink containing alcohol?: 2-3 times a week 2. How many drinks containing alcohol do you have on a typical day when you are drinking?: 1 or 2 3. How often do you have six or more drinks on one occasion?: Never Total Score: 3 Score Reviewed/Action Taken: No DILLON-7 AMB Questionnaire DILLON-7 Date DILLON - 7 assessed: 12/21/24 Feeling nervous, anxious, or on edge: 0 = Not at all Not being able to stop or control worryin = Not at all Worrying too much about different things: 0 = Not at all Trouble relaxin = Not at all Being so restless that it is hard to sit still: 0 = Not at all Becoming easily annoyed or irritable: 0 = Not at all Feeling afraid as if something awful might happen: 0 = Not at all Total DILLON-7 score (0-4 normal; 5-9 mild; 10-14 moderate; 15-21 severe): 0 Source: Developed by Drs. Seamus Del Rio, Mariann Penny, Dante Turcios and colleagues, with an educational nabila from [employer]. DILLON-7 Assessment Billing DILLON-7 Assessment Tool: DILLON-7 Assessment 82810 Review of Systems Const Details: - Musculoskeletal: Reports left knee pain, denies palpable cysts, reports chronic neck pain, reports sciatica. - Endocrine: Reports low testosterone, denies current treatment. Physical exam (Primary Care) Vital Signs: Last Vital Signs Temp 98.1 F 12/21/24 15:40 Pulse 78 12/21/24 15:40 Resp 16 12/21/24 15:40 BP 133/65 12/21/24 15:40 Pulse Ox 99 12/21/24 15:40 Oxygen Delivery Method Room Air 12/21/24 15:40 Care Plan Goal for BP management: <140/90 at Goal BMI result Body Mass Index 40.8 BMI Assessment/Plan discussion: High BMI High, discussed plan: lifestyle, weight reduction, dietary, physical activity and alcohol moderation Tobacco/Smoking Status: Tobacco use Status Tobacco use date assessed 12/21/24 12/21/24 15:48 Patient Tobacco Use Status Former Tobacco user 12/21/24 15:48 e-Cigarette/Vaping Use Currently Using 12/21/24 15:48 PHQ-9: PHQ-9 Score PHQ-9: Total score 0 12/21/24 15:48 Depression Screening Interpretation: Negative Thrive Assessment: Date of Thrive Assessment Date Thrive assessed 12/21/24 12/21/24 15:48 Const Other: Appearance: Alert. Oriented X3. No acute distress. Head: Normal external exam. Normocephalic. Atraumatic. Eyes: Pupils are equal, round, and reactive to light. Extraocular movements intact. Conjunctiva and sclera normal. Eyelids normal. Throat: Pharynx normal. Uvula midline. Moist mucous membranes. Neck: Normal inspection. Neck supple. Full range of motion. Cardiovascular: Normal heart rate and rhythm. Respiratory: No respiratory distress. Painless inspiration. Back: No costovertebral angle tenderness. Full range of motion noted. Patient reports chronic back pain. Skin: Skin warm and dry. Normal skin color. Normal skin turgor. No rashes/lesions/lacerations noted. Extremities: No lower extremity edema. Left knee exhibits tenderness and slight swelling to posterior aspect of knee. No calf tenderness noted bilaterally. Patient has good range of motion to left knee. Otherwise all other extremities exhibit normal range of motion nontender. Neuro: Oriented X 3. No motor deficit. No sensory deficit. Reflexes normal. Results Reviewed Results Reviewed: - Labs: Elevated ESR at 22, low vitamin D levels, LDL cholesterol at 124 mg/dL. Coding Level of Care Code Est Pt Level 4 (11524) Complex EM visit Add On G2211 Diagnoses Left knee pain M25.562 Elevated testosterone level R79.89 Vitamin D deficiency E55.9 Hyperlipidemia E78.5 Elevated erythrocyte sedimentation rate R70.0 Obesity, morbid, BMI 40.0-49.9 E66.01 Additional Codes PHQ-9 - 57281 - PHQ-9 Billing: Yes ([id number]) DILLON-7 Assessment Billing - DILLON-7 Assessment Tool: DILLON-7 Assessment 84911 ([id number]) Assessment & Plan Assessment & Plan (1) Left knee pain: Code(s): M25.562 - Pain in left knee Category: Medical Plan: The plan includes obtaining an x-ray and ultrasound of the left knee to evaluate for any underlying pathology such as a cyst or other structural abnormalities. If these imaging studies do not reveal significant findings, further evaluation with an MRI may be considered, pending insurance approval. Physical therapy will be considered based on the results of the imaging studies. (2) Elevated testosterone level: Code(s): R79.89 - Other specified abnormal findings of blood chemistry Category: Medical Plan: The patient has been referred to an [employer]CRAFT ENGINE AS[employer]BLER for further evaluation and management, as there is a suspicion of Polycystic Ovarian Syndrome (PCOS) contributing to the low testosterone levels. Endocrinology has not initiated any treatment, and the patient is awaiting further assessment. (3) Vitamin D deficiency: Code(s): E55.9 - Vitamin D deficiency, unspecified Category: Medical Plan: The patient should consider vitamin D supplementation to address the deficiency noted in previous lab work. Condition is chronic and stable will continue to monitor. (4) Hyperlipidemia: Code(s): E78.5 - Hyperlipidemia, unspecified Category: Medical Plan: The patient's LDL cholesterol is slightly elevated, and lifestyle modifications, including dietary changes, are recommended to manage this condition. Condition is chronic and stable will continue to monitor. (5) Elevated erythrocyte sedimentation rate: Code(s): R70.0 - Elevated erythrocyte sedimentation rate Category: Medical Plan: The elevated ESR will be rechecked in the coming months to monitor for any changes in inflammatory status. Condition is chronic and stable continue to monitor. (6) Obesity, morbid, BMI 40.0-49.9: Code(s): E66.01 - Morbid (severe) obesity due to excess calories Category: Medical Plan: Patient to improve diet and exercise regimen. Patient will be referred to medical weight management. Condition is chronic and stable will continue to monitor. Plan Plan Patient was informed and verbally consented to the use of an ambient scribe for clinic note documentation during this visit. 1. Left Knee Pain The plan includes obtaining an x-ray and ultrasound of the left knee to evaluate for any underlying pathology such as a cyst or other structural abnormalities. If these imaging studies do not reveal significant findings, further evaluation with an MRI may be considered, pending insurance approval. Physical therapy will be considered based on the results of the imaging studies. 2. High Testosterone The patient has been referred to an AIRCRAFT ENGINE ASSEMBLER for further evaluation and management, as there is a suspicion of Polycystic Ovarian Syndrome (PCOS) contributing to the high testosterone levels. Endocrinology has not initiated any treatment, and the patient is awaiting further assessment. 3. Vitamin D Deficiency The patient should consider vitamin D supplementation to address the deficiency noted in previous lab work. 4. Hyperlipidemia The patient's LDL cholesterol is slightly elevated, and lifestyle modifications, including dietary changes, are recommended to manage this condition. 5. Elevated Esr The elevated ESR will be rechecked in the coming months to monitor for any changes in inflammatory status. During the visit, we discussed the plan to obtain imaging studies for the left knee to assess for any structural issues. We also reviewed the patient's low testosterone levels and the referral to [employer]ER for further evaluation, considering the possibility of PCOS. The importance of monitoring vitamin D levels and managing hyperlipidemia through lifestyle changes was emphasized. Orders: Orders US Extremity Nonvas Limited LT Today M25.562 - Pain in left knee, M25.569 - Pain in unspecified knee XR knee LT 4V Today M25.562 - Pain in left knee, M25.569 - Pain in unspecified knee Referrals Medical Weight Management Referral E66.01 - Morbid (severe) obesity due to excess calories Patient Instructions: - Schedule and complete the x-ray and ultrasound for the left knee. - Follow up with AIRCRAFT ENGINE ASSEMBLER for evaluation of low testosterone and possible PCOS. - Consider vitamin D supplementation as discussed. - Implement dietary changes to manage cholesterol levels. - Return for follow-up in six months or sooner if symptoms worsen.
[2024-12-21 15:40] VITALS: BP 133/65; PULSE 78; RESP 16; TEMP 36.7; O2SAT 99; BMI 40.8
--- OUTSIDE RECORDS SUMMARY | 2024-12-21 17:04 | XMS_ITS | Data Portability ---
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 Plan of Treatment Reminders Order Date Submit Date Provider Last Modified By Organization Details Last Modified Time Details Appointments None recorded. Lab urinalysis, dipstick 2022 [facility]23 [facility], [address] [place] [address], [address], 3 18:01:37 test, urine 2022 023 [facility] [address] [place] [address], [address] [place] [address], [address], 3 18:01:37 culture, urine 2022 023 L[facility], [address] [place] [address], [place], [address], 3 06:07:37 Referral None recorded. Procedures None recorded. Surgeries None recorded. Imaging XR, elbow, 3 or more view 2022 023 [facility], [address] [place] [address], [place], [address], 18:55:51 Medication Orders cephalexin [address] [facility] ([place], [place]Pharmacy #[id number], [address] [facility], [place], [address], 18:06:04 Patient TargetsNo targets recorded. Patient Instructions Encounter Date Encounter Id Patient Instructions Last Modified By Organization Details Last Modified Time 07/11/2022 [id number] elbow sprain: ca re instructions [email or web address] Not available 07/11/2022 18:04:01 08/13/2022 [id number] We recommend you get a repeat urinalysis [...] LastModifiedBy Organization Detail LastModifiedTime 08/13/1908/15/2022 URINE CULTU RE, TONYI NE urine culture, routine FINAL REPORT Not Available [facility] ([facility]) [address] [place], [address], 08/15/2022 06:07:37 08/13/19 23 08/15/2022 URINE CULTU RE, ROUTI NE result 1 COMMEN T Mixed uroge nital myron 10,00 0-25, 000 colon y formi ng units per mL Not Available [facility] ([facility]) [address] [place], [address], 08/15/2022 06:07:37 08/13/19 23 08/13/2022 urina lysis , dipst ick Unknown Analyte Normal = light yellow Not Available [address] [facility] [place], [address], 08/13/2022 17:33:10 08/13/19 23 08/13/2022 urina lysis , dipst ick Unknown Analyte Yellow Not Available se [address], [place], [address], 08/13/2022 17:33:10 08/13/19 23 08/13/2022 urina lysis , dipst ick Unknown Analyte Normal = clear Not Available jen oneil [address], [place], [address], 08/13/2022 17:33:10 08/13/19 23 08/13/2022 urina lysis , dipst ick Unknown Analyte Slight ly Cloudy Not Available jen oneil [address], [place], [address], 08/13/2022 17:33:10 08/13/19 23 08/13/2022 urina lysis , dipst ick Unknown Analyte Normal = negati ve Not Available jen oneil [address], [place], [address], 08/13/2022 17:33:10 08/13/19 23 08/13/2022 urina lysis , dipst ick Unknown Analyte Negati ve Not Available jen oneil [address], [place], [address], 08/13/2022 17:33:10 08/13/19 23 08/13/2022 urina lysis , dipst ick Unknown Analyte Normal = Negati ve Not Available jen oneil [address], [place], [address], 08/13/2022 17:33:10 08/13/19 23 08/13/2022 urina lysis , dipst ick Unknown Analyte Negati ve Not Available jen oneil [address], [place], [address], 08/13/2022 17:33:10 08/13/1908/13/2022 urina lysis , dipst ick Unknown Analyte Normal = Negati ve Not Available jen oneil [address], [place], [address], 08/13/2022 17:33:10 08/13/19 23 08/13/2022 urina lysis , dipst ick Unknown Analyte 15 mg/dL Not Available jen oneil [address], [place], [address], 08/13/2022 17:33:10 08/13/19 23 08/13/2022 urina lysis , dipst ick Unknown Analyte Normal = 1.010, 1.015, 1.020 Not Available [facility] [address], [place], [address], 08/13/2022 17:33:10 08/13/19 23 08/13/2022 urina lysis , dipst ick Unknown Analyte 1.020 Not Available [address], [place], [address], 08/13/2022 17:33:10 08/13/19 23 08/13/2022 urina lysis , dipst ick Unknown Analyte Normal = Negati ve Not Available jen oneil [address], [place], [address], 08/13/2022 17:33:10 08/13/19 23 08/13/2022 urina lysis , dipst ick Unknown Analyte Trace- intact Not Available jen oneil [address], [place], [address], 08/13/2022 17:33:10 08/13/19 23 08/13/2022 urina lysis , dipst ick Unknown Analyte Normal = 6.5, 7.0, 7.5, 8.0 Not Available 2099jen oneil [address], [place], [address], 08/13/2022 17:33:10 08/13/19 23 08/13/2022 urina lysis , dipst ick Unknown Analyte 6.5 Not Available [address] [place], [place] [address] [address], [place], [address], 08/13/2022 17:33:10 08/13/19 23 08/13/2022 urina lysis , dipst ick Unknown Analyte Normal = Negati ve Not Available 2099jen oneil [address], [place], [address], 08/13/2022 17:33:10 08/13/19 23 08/13/2022 urina lysis , dipst ick Unknown Analyte Negati ve Not Available 2099jen [address], [place], [address], 08/13/2022 17:33:10 08/13/19 23 08/13/2022 urina lysis , dipst ick Unknown Analyte Normal = 0.2, 1.0 Not Available jen oneil [address], [place], [address], 08/13/2022 17:33:10 08/13/19 23 08/13/2022 urina lysis , dipst ick Unknown Analyte 0.2 E.U./d L Not Available 2099jen oneil [address], [place], [address], 08/13/2022 17:33:10 08/13/19 23 08/13/2022 urina lysis , dipst ick Unknown Analyte Normal = Negati ve Not Available [facility] [address], [place], [address], 08/13/2022 17:33:10 08/13/1908/13/2022 urina lysis , dipst ick Unknown Analyte Negati ve Not Available [address], [place], [address], 08/13/2022 17:33:10 08/13/19 23 08/13/2022 urina lysis , dipst ick Unknown Analyte Normal = Negati ve Not Available [address], [place], [address], 08/13/2022 17:33:10 08/13/19 23 08/13/2022 urina lysis , dipst ick Unknown Analyte Trace Not Available [address], [place], [address], 08/13/2022 17:33:10 08/13/19 23 08/13/2022 pregn danelle test, urine Unknown Analyte Normal = Negati ve Not Available [address], [place], [address], 08/13/2022 17:33:11 08/13/19 23 08/13/2022 pregn danelle test, urine Unknown Analyte negati ve Not Available [address], [place], [address], 08/13/2022 17:33:11 07/11/19 23 07/11/2022 XR, elbow , 3 or more view No observ ation record ed. [email or web address] 1 [facility] [address] [place], [address], 07/12/2022 08:12:42 Result Notes None recorded. Problems No Known Problems Medical Equipment None Reported. Allergies No known [...] saturation in Arterial blood by Pulse oximetry Heart rate Respiratory rate Body temperature Systolic blood pressure Diastolic blood pressure Provider Name and Address Organization Details Last Updated DateTime 3 720896. 25 g 37.1 kg/m2 167.64 cm 100 % 100 % 90 /min 20 /min 98.4 [degF] 144 mm[Hg] 92 mm[Hg] Nohemy Pina PA - [facility] 3 17:26:53 Date Recorded Body height Body mass index (BMI) Body weight Oxygen saturation Oxygen saturation in Arterial blood by Pulse oximetry Heart rate Respiratory rate Body temperature Systolic blood pressure Diastolic blood pressure Provider Name and Address Organization Details Last Updated DateTime 3 167.64 cm 37.1 kg/m2 084276. 25 g 100 % 100 % 118 /min 20 /min 97.7 [degF] 137 mm[Hg] 85 mm[Hg] Nohemy Pina PA - [facility] 3 17:39:25 Social History Question Answer Notes LastModified by [employer] Details LastModified Time Tobacco Smoking Status Never Smoker Nohemy guajardo PA - [facility] 07/11/2022 17:25:24 Have You Had Direct Contact, Or Contact During Intimacy, With Monkeypox Rash, Scabs, Or Body Fluids From A Person With Monkeypox? No Information not available 07/11/2022 Have You Recently Traveled Abroad? No Information not available 07/11/2022 Sex: Unknown Functional Status Question Answer Note LastModified by [employer] Details LastModified Time Do you use any [...] or 50 mcg/0.25mL dose 08/20/2020 completed Nohemy [place] null, PA - [facility] 07/11/2022 17:24:45 COVID-19, mRNA, LNP-S, PF, 100 mcg/0.5mL dose or 50 mcg/0.25mL dose 07/22/2020 completed Nohemy [place] null, PA - [facility] 07/11/2022 17:24:45 COVID-19, mRNA, LNP-S, bivalent, PF, 30 mcg/0.3 mL dose 05/06/2022 completed Nohemy [place] null, PA - [facility] 07/11/2022 17:24:45 Influenza, MDCK, quadrivalent, PF 05/10/2022 completed Nohemy [place] null, PA - [facility] 07/11/2022 17:24:45 COVID-19, mRNA, LNP-S, PF, 100 mcg/0.5mL dose or 50 mcg/0.25mL dose 06/07/2021 completed Nohemy Silvana null, PA - [facility] 07/11/2022 17:24:45 Influenza, split virus, quadrivalent, PF 02/03/2020 completed Nohemy Silvana null, PA - [facility] 08/13/2022 17:33:50 Influenza, split virus, quadrivalent, PF 02/12/2018 completed Nohemy [place] null, PA - [facility] 08/13/2022 17:33:50 Influenza, split virus, quadrivalent, PF 02/13/2017 completed Nohemy [place] null, PA - [facility] 08/13/2022 17:33:50 [...] SNOMED-CT Code Diagnosis ICD10 Code Diagnosis Note [id number] [facility] [address] [place] [address] 04/11/2019 15:46:00 04/11/2019 16:46:09 [id number] [facility] [address] [place] [address] 05/15/2020 10:24:10 05/15/2020 13:59:01 [id number] [facility] [address] [address] [place] [address] 10/17/2015 18:11:44 10/17/2015 19:49:54 [id number] [facility] [address] [place] [address] 07/01/2020 09:58:06 07/01/2020 13:50:57 [id number] Fred[facility] [address] [place] [address] 07/11/2022 17:04:35 07/11/2022 18:09:53 Pain in right arm 273451239 M79.601 Strain of muscle and/or tendon of elbow region 285385443 S56.911A May take ibuprofen as directed on the bottle for pain if you have no allergy to NSAIDs or contraindi cations to taking NSAIDs that your doctor has told you about. [id number] Carlton Adams NP [address] [address] [place] [address] 08/13/2022 15:32:17 08/13/2022 18:11:39 Acute urinary tract infection 746437809 N39.0 Health Concerns Section Related Observation LastModified by Organization Detai ls LastModified Time None Recorded Concern Status LastModified by Organization Details LastModified Time None Recorded Advance Directives Directive None Recorded Payers Insurance Date Sequence Insurance Name Policy Number Policy Koch Covered Member ID Koch Member ID Guarantor Name 07/11/2022 1 [facility] [id number] Arnoldo Paulson Ricardo [id number] Crystal L Raleigh 09/24/2022 [employer] [id number] [facility] Crystal L Ricardo 08/13/2022 1 [employer] [id number] Crystal L Ricardo [id number] Crystal L Ricardo 09/24/2022 [facility] Generic Employer Crystal L [place] Notes Date Note Type Note Provider Name and Address Organization Details Recorded Time 3 text/html Upper Arm Elbow Injury UCReported bypatient.Hand Dominance:right Location:right Quality:dull Severity:mild Context:fall Associated Symptoms:no weakness; no numbness; no warmth; no catching/locking; no popping/clicking; no radiation down arm Previous InjuryNo prior injury to affected body part Fredy Pavon MD [address] [place] [address] [place], [address], PA - [facility] 07/11/2022 18:20:03 3 [...] or bladder issues. Carlton Adams NP [address] [place], [address], PA - [facility] 08/13/2022 18:06:43 OBGyn Episode No OBEpisode recorded.
== END 2024-12-21 16:03 | disposition home or self-care (01) ==
LOC: HO.HMCSH 15:35
PROVIDERS: PCP Internal Medicine; Visit Provider Physician Assistant Medical
DX: M25.562 Pain in left knee (principal); R79.89 Other specified abnormal findings of blood chemistry; E55.9 Vitamin D deficiency, unspecified; E78.5 Hyperlipidemia, unspecified; R70.0 Elevated erythrocyte sedimentation rate; E66.01 Morbid (severe) obesity due to excess calories

== ENCOUNTER → 2024-12-21 15:35 | Outpatient (BNVA) | payer OTHER, SELFPAY | PROVIDERS: PCP Internal Medicine; Visit Provider Physician Assistant Medical | DX: M25.562 Pain in left knee (principal); M54.2 Cervicalgia; G89.29 Other chronic pain; M54.30 Sciatica, unspecified side; E55.9 Vitamin D deficiency, unspecified; R79.89 Other specified abnormal findings of blood chemistry; E78.5 Hyperlipidemia, unspecified; R70.0 Elevated erythrocyte sedimentation rate; E66.01 Morbid (severe) obesity due to excess calories; Z68.41 Body mass index [BMI] 40.0-44.9, adult | CPT/HCPCS: 96127 ==

== ENCOUNTER 2025-01-06 13:09 | Outpatient (REF) | payer OTHER, SELFPAY ==
--- NOTE | ~2025-01-06 | XR_ITS ---
EXAMINATION: XR KNEE, LEFT CLINICAL INFORMATION: M25.562 - Pain in left knee COMPARISON: None available. TECHNIQUE: AP, oblique, lateral and sunrise views of the left knee. FINDINGS: No acute cortical disruption or malalignment. No lytic or blastic lesions. No calcifications within the menisci. No suprapatellar bursa joint effusion. Preservation of joint spaces. XR/XR knee LT 4V IMPRESSION: No acute fracture or dislocation. Negative x-ray. Electronically signed by: Anders Gallegos MD 01/06/2025 01:27 PM EDT
--- OUTSIDE RECORDS SUMMARY | 2025-01-06 13:59 | XMS_ITS | Clinical Summary ---
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 Phone Unavailable Primary Care Provider [...] 1990 HIV Screening 1990 SDOH Screening 1990 Disability Screening 1990 Alcohol/Substance Use Screening 2002 Tobacco Screening 2002 Family Planning (PISQ) 2005 Hepatitis C Screening 2008 DTaP/Tdap/Td Vaccines (1 - Tdap) 2009 Hepatitis B Vaccines (1 of 3 - 19+ 3-dose series) 2009 Pap Smear 2011 Cervical Cancer Screening 2020 HPV/Cotest 2020 COVID-19 Vaccine ( - 2023-2 5 season) 2024 Influenza Vaccine (#1) 2025 Zoster Vaccines (1 of 2) 2040 RSV [...] patient's age to complete this topic Meningococcal B Vaccine Aged Out No l onger eligible based on patient's age to complete this topic Meningococcal Vaccine Aged Out No rosa maria izabel eligible based on patient's age to complete this topic Pneumococcal Vaccine: Pediat rics (0 to 5 Years) and At-Risk Patients (6 to 49) Years Aged Out No longer eligible b ased on patient's age to complete this topic RSV under 20 months Aged Out No longe r eligible based on patient's age to complete this topic Rotavirus Vaccines Aged Out No longer eligible based on patient's age to complete this topic Insurance [employer]
--- OUTSIDE RECORDS SUMMARY | 2025-01-06 13:59 | XMS_ITS | Data Portability ---
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 Plan of Treatment Reminders Order Date Submit Date Provider Last Modified By Organization Details Last Modified Time Details Appointments None recorded. Lab urinalysis, dipstick 2022 023 [facility], [address] [place] [address], [phone], 3 18:01:37 test, urine 2022 023 [facility] [address] [place] [address], [address] [place] [address], [phone], 3 18:01:37 culture, urine 2022 023 [place] [facility], [address] [place] [address], [place], [address], 3 06:07:37 Referral None recorded. Procedures None recorded. Surgeries None recorded. Imaging XR, elbow, 3 or more view 2022 023 [facility], [address] [place] [address], [place], [address], 18:55:51 Medication Orders cephalexin [address] [facility][id number], [address] [facility], [place], [address], 18:06:04 Patient TargetsNo targets recorded. Patient Instructions Encounter Date Encounter Id Patient Instructions Last Modified By Organization Details Last Modified Time 07/11/2022 [id number] elbow sprain: ca re instructions [email or web address] Not available 07/11/2022 18:04:01 08/13/2022 [id number] We recommend you get a repeat urinalysis [...] culture, routine FINAL REPORT Not Available [facility] ([facility]) [address] [place], [address], 08/15/2022 06:07:37 08/13/19 23 08/15/2022 URINE CULTU RE, ROUTI NE result 1 COMMEN T Mixed uroge nital myron 10,00 0-25, 000 colon y formi ng units per mL Not Available [facility] ([facility]) [address] [place], [address], 08/15/2022 06:07:37 08/13/19 23 08/13/2022 urina lysis , dipst ick Unknown Analyte Normal = light yellow Not Available [address] [facility] [place], [address], 08/13/2022 17:33:10 08/13/19 23 08/13/2022 urina lysis , dipst ick Unknown Analyte Yellow Not Available se [address], [place], [address], 08/13/2022 17:33:10 08/13/19 23 08/13/2022 urina lysis , dipst ick Unknown Analyte Normal = clear Not Available jen oneil [address], [place], [address], 08/13/2022 17:33:10 08/13/19 23 08/13/2022 urina lysis , dipst ick Unknown Analyte Slight ly Cloudy Not Available jen oneil [address], [place], [address], 08/13/2022 17:33:10 08/13/19 23 08/13/2022 urina lysis , dipst ick Unknown Analyte Normal = negati ve Not Available jen oneil [address], [place], [address], 08/13/2022 17:33:10 08/13/19 23 08/13/2022 urina lysis , dipst ick Unknown Analyte Negati ve Not Available jen oneil [address], [place], [address], 08/13/2022 17:33:10 08/13/19 23 08/13/2022 urina lysis , dipst ick Unknown Analyte Normal = Negati ve Not Available jen oneil [address], [place], [address], 08/13/2022 17:33:10 08/13/19 23 08/13/2022 urina lysis , dipst ick Unknown Analyte Negati ve Not Available jen oneil [address], [place], [address], 08/13/2022 17:33:10 08/13/1908/13/2022 urina lysis , dipst ick Unknown Analyte Normal = Negati ve Not Available jen oneil [address], [place], [address], 08/13/2022 17:33:10 08/13/19 23 08/13/2022 urina lysis , dipst ick Unknown Analyte 15 mg/dL Not Available jen oneil [address], [place], [address], 08/13/2022 17:33:10 08/13/19 23 08/13/2022 urina lysis , dipst ick Unknown Analyte Normal = 1.010, 1.015, 1.020 Not Available [facility] [address], [place], [address], 08/13/2022 17:33:10 08/13/19 23 08/13/2022 urina lysis , dipst ick Unknown Analyte 1.020 Not Available [address], [place], [address], 08/13/2022 17:33:10 08/13/19 23 08/13/2022 urina lysis , dipst ick Unknown Analyte Normal = Negati ve Not Available jen oneil [address], [place], [address], 08/13/2022 17:33:10 08/13/19 23 08/13/2022 urina lysis , dipst ick Unknown Analyte Trace- intact Not Available jen oneil [address], [place], [address], 08/13/2022 17:33:10 08/13/19 23 08/13/2022 urina lysis , dipst ick Unknown Analyte Normal = 6.5, 7.0, 7.5, 8.0 Not Available 2099jen oneil [address], [place], [address], 08/13/2022 17:33:10 08/13/19 23 08/13/2022 urina lysis , dipst ick Unknown Analyte 6.5 Not Available [address] [place], [place] [address], [place], [address], 08/13/2022 17:33:10 08/13/19 23 08/13/2022 urina lysis , dipst ick Unknown Analyte Normal = Negati ve Not Available 2099jen oneil [address], [place], [address], 08/13/2022 17:33:10 08/13/19 23 08/13/2022 urina lysis , dipst ick Unknown Analyte Negati ve Not Available [address], [place], [address], 08/13/2022 17:33:10 08/13/19 23 08/13/2022 urina lysis , dipst ick Unknown Analyte Normal = 0.2, 1.0 Not Available jen oneil [address], [place], [address], 08/13/2022 17:33:10 08/13/19 23 08/13/2022 urina lysis , dipst ick Unknown Analyte 0.2 E.U./d L Not Available [address]99[address] oneil [address], [place], [address], 08/13/2022 17:33:10 08/13/19 23 08/13/2022 urina lysis , dipst ick Unknown Analyte Normal = Negati ve Not Available [address] [address], [place], [address], 08/13/2022 17:33:10 08/13/1908/13/2022 urina lysis , dipst ick Unknown Analyte Negati ve Not Available [address], [place], [address], 08/13/2022 17:33:10 08/13/19 23 08/13/2022 urina lysis , dipst ick Unknown Analyte Normal = Negati ve Not Available [address], [place], [address], 08/13/2022 17:33:10 08/13/19 23 08/13/2022 urina lysis , dipst ick Unknown Analyte Trace Not Available [address], [place], [address], 08/13/2022 17:33:10 08/13/19 23 08/13/2022 pregn danelle test, urine Unknown Analyte Normal = Negati ve Not Available [address], [place], [address], 08/13/2022 17:33:11 08/13/19 23 08/13/2022 pregn danelle test, urine Unknown Analyte negati ve Not Available [address], [place], [address], 08/13/2022 17:33:11 07/11/19 23 07/11/2022 XR, elbow , 3 or more view No observ ation record ed. [email or web address] 1 [facility] [address] [place], [address], 07/12/2022 08:12:42 Result Notes None recorded. Problems [...] Heart rate Respiratory rate Body temperature Systolic And Diastolic Provider Name and Address Organization Details Last Updated DateTime 3 507080. 25 g 37.1 kg/m2 167.64 cm 100 % 100 % 90 /min 20 /min 98.4 [degF] 144/92 mm[Hg] Nohemy Pina PA - [facility] 3 17:26:53 Date Recorded Body height Body mass index (BMI) Body weight Oxygen saturation Oxygen saturation in Arterial blood by Pulse oximetry Heart rate Respiratory rate Body temperature Systolic And Diastolic Provider Name and Address Organization Details Last Updated DateTime 3 167.64 cm 37.1 kg/m2 702914. 25 g 100 % 100 % 118 /min 20 /min 97.7 [degF] 137/85 mm[Hg] Nohemy Pina PA - [facility] 3 17:39:25 Social History Question Answer Notes LastModified by [employer] Details LastModified Time Tobacco Smoking Status Never Smoker Nohemy guajardo PA - [facility] 07/11/2022 17:25:24 Have You Had Direct Contact, Or Contact During Intimacy, With Monkeypox Rash, Scabs, Or Body Fluids From A Person With Monkeypox? No Information not available 07/11/2022 Have You Recently Traveled Abroad? No Information not available 07/11/2022 Sex: Unknown Functional Status Question Answer Note LastModified by [employer] Details LastModified Time Do you use any [...] Influenza, MDCK, quadrivalent, PF 05/10/2022 completed Nohemy [place] null, PA - [facility] 07/11/2022 17:24:45 COVID-19, mRNA, LNP-S, PF, 100 mcg/0.5mL dose or 50 mcg/0.25mL dose 06/07/2021 completed Nohemy [place] null, PA - [facility] 07/11/2022 17:24:45 Influenza, split virus, quadrivalent, PF 02/03/2020 completed Nohemy [place] null, PA - [facility] 08/13/2022 17:33:50 Influenza, split virus, quadrivalent, PF 02/12/2018 completed Nohemy Silvana null, PA - [facility] 08/13/2022 17:33:50 Influenza, split virus, quadrivalent, PF 02/13/2017 completed Nohemy Silvana null, PA - [facility] 08/13/2022 17:33:50 Influenza, split virus, quadrivalent, PF 02/17/2019 completed Noehmy [place] null, PA - [facility] 08/13/2022 17:33:50 Influenza, split virus, quadrivalent, PF 02/21/2016 completed Nohemy Silvana null, PA - [facility] 08/13/2022 17:33:51 Influenza, split virus, quadrivalent, PF 03/04/2021 completed Nohemy Silvana null, PA - [facility] 08/13/2022 17:33:51 Past Encounters Encounter ID Performer Location Encounter Start Date Encounter Closed Date Diagnosis/Indication Diagnosis SNOMED-CT Code Diagnosis ICD10 Code Diagnosis Note [id number] [address] [place] [address] 04/11/2019 15:46:00 04/11/2019 16:46:09 [id number] [address] [place] [address] 05/15/2020 10:24:10 05/15/2020 13:59:01 [id number] [address] [place] [address] 10/17/2015 18:11:44 10/17/2015 19:49:54 [id number] [address] [place] [address] 07/01/2020 09:58:06 07/01/2020 13:50:57 [id number] Fredy Pavon MD [address] [address] [place] [address] 07/11/2022 17:04:35 07/11/2022 18:09:53 Pain in right arm 446839482 M79.601 Strain of muscle and/or tendon of elbow region 950651863 S56.911A May take ibuprofen as directed on the bottle for pain if you have no allergy to NSAIDs or contraindi cations to taking NSAIDs that your doctor has told you about. [id number] Carlton Adams NP [address] [address] [place] [address] 08/13/2022 15:32:17 08/13/2022 18:11:39 Acute urinary tract infection 347750898 N39.0 Health Concerns Section Related Observation LastModified by Organization Detai ls LastModified Time None Recorded Concern Status LastModified by Organization Details LastModified Time None Recorded Advance Directives Directive None Recorded Payers Insurance Date Sequence Insurance Name Policy Number Policy Koch Covered Member ID Koch Member ID Guarantor Name 07/11/2022 1 [facility] [id number] [facility] Ricardo [id number] Crystal L Brodhead 09/24/2022 [facility] [id number] [facility] Crystal L Ricardo 08/13/2022 1 [employer] [id number] Crystal L Brodhead [id number] Crystal L Brodhead 09/24/2022 [facility] Generic Employer Crystal L Brodhead Notes Date Note Type Note Provider Name and Address Organization Details Recorded Time 3 text/html Upper Arm Elbow Injury UCReported bypatient.Hand Dominance:right Location:right Quality:dull Severity:mild Context:fall Associated Symptoms:no weakness; no numbness; no warmth; no catching/locking; no popping/clicking; no radiation down arm Previous InjuryNo prior injury to affected body part Fredy Pavon [place] [facility] [place], [address], [place] - [facility] 07/11/2022 18:20:03 3 [...] Adams NP [address] [place], [address], PA - [facility] 08/13/2022 18:06:43 OBGyn Episode No OBEpisode recorded.
== END 2025-01-06 13:10 | disposition home or self-care (01) ==
LOC: HO.HMGCX 13:09
PROVIDERS: Visit Provider Physician Assistant Medical
DX: M25.562 Pain in left knee (principal)
CPT/HCPCS: 73564

== ENCOUNTER → 2025-01-06 13:14 | Outpatient (BNV) | payer OTHER, SELFPAY | PROVIDERS: Visit Provider Radiology Diagnostic Radiology | DX: M25.562 Pain in left knee (principal) | CPT/HCPCS: 73564 ==

== ENCOUNTER 2025-03-19 11:37 | Outpatient (AMB) | payer OTHER, SELFPAY ==
--- NOTE | 2025-03-19 11:43 | A.OFFVIS_ITS ---
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 Patient reports her knee pain has been intermittent for some time, however her pain has been consistent for the past year. Her pain is localized at the posterior of the knee and is worse with bending her knee, stating she feels a pulling sensation with bending. Denies history of recent trauma or injury. She attended physical therapy when she was younger. No recent treatments. She has tried knee bracing and this increased her pain. 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 She states the pain has been going on for little over a year and she feels the discomfort is primarily posterior to her knee. She feels a pulling sensation when she is sitting. She also has discomfort with stairs and prolonged standing. No injury to date. [facility] Medical History (Updated 03/19/25 @ 12:00 by Jeri Jason PA-C) Elevated erythrocyte sedimentation rate Vitamin D deficiency Posterior knee pain Left knee pain Elevated testosterone level Hyperlipidemia Fatty liver Varicose veins of both lower extremities Obesity, morbid, BMI 40.0-49.9 Establishing care with new doctor, encounter for Cervical cancer screening No active medical problems Surgical History H/O tubal ligation Family History Father No problems noted. Mother No problems noted. Social History (Updated 03/19/25 @ 11:46 by MANISHA Holt) Housing: House Alcohol intake: current Alcohol intake frequency: a few times a week Alcohol type: beer Patient Tobacco Use Status: Former Tobacco user e-Cigarette/Vaping Use: Currently Using service: No Current occupational status: employed Current occupation: [employer], right hand dominant Cognitive needs: No Hearing needs: No Vision needs: No Review of Systems Const All systems reviewed & are unremarkable except as noted in HPI and below Physical Exam Vital Signs: BMI result Body Mass Index 41.1 Const General: cooperative and no acute distress Orientation/consciousness: patient oriented x3 Resp Effort & Inspection: normal respiratory effort and able to speak in complete sentences Cardio Peripheral pulses: Peripheral pulses 2+ throughout Neuro General: patient oriented x3 Extrem Other: Left knee is normal to inspection. She has no erythema or joint effusion. Mild tenderness over the medial aspect of the knee along the pes bursa. She also has discomfort posteriorly and pain with hamstring flexion. Results Reviewed Results Reviewed: X-rays of the left knee obtained on 01/06/2025 are negative for acute abnormalities. Mild lateralization of the patella. Assessment & Plan Assessment & Plan (1) Left hamstring muscle strain: Code(s): S76.312A - Strain of muscle, fascia and tendon of the posterior muscle group at thigh level, left thigh, initial encounter Category: Medical Plan: We discussed options which includes physical therapy to work on hamstring stretching and strengthening. Quad strength and glute strengthening exercises. I also recommend anti-inflammatories to help with the inflammation. She will increase activities as tolerated and see me back as needed. Orders: Orders PT Evaluation and Treatment Today S76.312A - Strain of muscle, fascia and tendon of the posterior muscle group at thigh level, left thigh, initial encounter Coding Level of Care Code New Pt Level 3 (38714) Complex EM visit Add On G2211 Diagnoses Left hamstring muscle strain S76.312A
[2025-03-19 11:48] VITALS: BMI 41.1
--- OUTSIDE RECORDS SUMMARY | 2025-03-19 12:12 | XMS_ITS | Clinical Summary ---
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
== END 2025-03-19 12:38 | disposition home or self-care (01) ==
LOC: HO.HOS 11:38
PROVIDERS: Visit Provider Physician Assistant
DX: S76.312A Strain of muscle, fascia and tendon of the posterior muscle group at thigh level, left thigh, initial encounter (principal)
CPT/HCPCS: 99203; G2211